=== PATIENT | male | born 1965 | race Caucasian/White ===

== ENCOUNTER 2020-11-12 13:33 | Emergency (ER) | payer OTHER ==
[~2020-11-12] VITALS: Ht 182.9 cm; Wt 83.9 kg
[~2020-11-12 13:33] MED LIST: DIPH50 PO; RANI150 PO
[2020-11-12 14:19] LABS: BASOPHILS ABSOLUTE AUTO 0.04 K/mm3 (0.00-0.23); BASOPHILS PERCENT AUTO 1 % (0-2); EOSINOPHILS ABSOLUTE AUTO 0.13 K/mm3 (0.00-0.68); EOSINOPHILS PERCENT AUTO 2 % (0-6); Hematocrit 43.6 % (37.0-53.0); Hemoglobin 15.1 g/dL (13.5-17.5); IMMATURE GRAN ABSOLUTE AUTO 0.03 K/mm3 (0.00-0.10); IMMATURE GRAN PERCENT AUTO 0 % (0-1); LYMPHOCYTES ABSOLUTE AUTO 1.99 K/mm3 (0.84-5.20); LYMPHOCYTES PERCENT AUTO 27 % (21-46); MONOCYTES ABSOLUTE AUTO 0.73 K/mm3 (0.16-1.47); MONOCYTES PERCENT AUTO 10 % (4-13); Mean Corpuscular HGB 31.3 pg (26.0-34.0); Mean Corpuscular HGB Conc 34.6 g/dL (31.5-36.5); Mean Corpuscular Volume 91 fL (80-100); NEUTROPHILS ABSOLUTE AUTO 4.57 K/mm3 (1.96-9.15); NEUTROPHILS PERCENT AUTO 61 % (41-73); RDW Coefficient Variation 11.9 % (11.7-14.2); RDW Standard Deviation 39.6 fL (35.1-46.3); Red Blood Cell Count 4.82 M/mm3 (4.30-5.90); White Blood Cell Count 7.49 K/mm3 (4.00-11.30)
[2020-11-12 14:24] LABS: Mean Platelet Volume 8.5 fL (9.1-12.4); Platelet Count 264 K/mm3 (150-400)
[2020-11-12 14:31] LABS: Alanine Aminotransfer (ALT/SGP 21 U/L (12-78); Albumin, Blood 3.3 g/dL (3.4-5.0); Albumin/Globulin Ratio 0.8 (0.8-1.8); Alk Phos 89 U/L (50-136); Anion Gap 4 mmol/L (6-16); Aspartate Aminotrans (AST/SGOT 28 U/L (12-37); Bilirubin, Total 0.5 mg/dL (0.1-1.0); Blood Urea Nitrogen 11 mg/dL (8-24); Bun/Creatinine Ratio 11.9 (12.0-20.0); CO2, Blood 24 mmol/L (21-32); Calcium, Blood 8.9 mg/dL (8.5-10.1); Chloride, Blood 107 mmol/L (98-108); Creatinine, Blood 0.93 mg/dL (0.60-1.20); Globulin, Blood 4.2 g/dL (2.2-4.0); Glomerular Filtration Rate >60 (60-); Glucose, Blood 86 mg/dL (70-99); Potassium, Blood 3.9 mmol/L (3.5-5.5); Sodium, Blood 135 mmol/L (136-145); Total Protein, Blood 7.5 g/dL (6.4-8.2); Troponin I <0.015 ng/mL (0.000-0.040)
== END 2020-11-12 15:32 | disposition home or self-care (01) ==
LOC: ER 13:33
PROVIDERS: Emergency Medicine
DX: R07.9 Chest pain, unspecified (principal); R20.0 Anesthesia of skin; Z53.21 Procedure and treatment not carried out due to patient leaving prior to being seen by health care provider
CPT/HCPCS: 36415; 71046; 80053; 84484; 85025; 93005; 93010

== ENCOUNTER 2021-03-23 21:23 | Emergency (ER) | payer SELFPAY ==
[~2021-03-23] VITALS: Ht 185.4 cm; Wt 77.1 kg
== END 2021-03-23 21:50 | disposition left against medical advice (07) ==
LOC: ER 21:23
DX: R10.13 Epigastric pain (principal); Z53.21 Procedure and treatment not carried out due to patient leaving prior to being seen by health care provider
CPT/HCPCS: 93005; 93010; 99281-25

== ENCOUNTER 2022-09-05 05:25 | Inpatient (IN) | payer OTHER ==
[~2022-09-05] VITALS: Ht 177.8 cm; Wt 65.5 kg
[2022-09-05 05:59] LABS: Source, Urine Clean Catch
[2022-09-05 06:19] LABS: Appearance, Urine Clear (Clear); Bilirubin, Urine Neg (Neg); Blood, Urine Neg (Neg); Glucose Qualitative, Urine Neg (Neg); Ketones, Urine Neg (Neg); Leukocyte Esterase, Urine Neg (Neg); Nitrite, Urine Neg (Neg); Protein, Urine 1+ (Neg); Urobilinogen, Urine NORM (Normal)
[2022-09-05 06:20] LABS: BASOPHILS ABSOLUTE AUTO 0.03 K/mm3 (0.00-0.23); BASOPHILS PERCENT AUTO 1 % (0-2); EOSINOPHILS ABSOLUTE AUTO 0.14 K/mm3 (0.00-0.68); EOSINOPHILS PERCENT AUTO 3 % (0-6); Hematocrit 42.7 % (37.0-53.0); Hemoglobin 14.9 g/dL (13.5-17.5); IMMATURE GRAN ABSOLUTE AUTO 0.02 K/mm3 (0.00-0.10); IMMATURE GRAN PERCENT AUTO 0 % (0-1); LYMPHOCYTES ABSOLUTE AUTO 2.49 K/mm3 (0.84-5.20); LYMPHOCYTES PERCENT AUTO 46 % (21-46); MONOCYTES ABSOLUTE AUTO 0.55 K/mm3 (0.16-1.47); MONOCYTES PERCENT AUTO 10 % (4-13); Mean Corpuscular HGB 29.9 pg (26.0-34.0); Mean Corpuscular HGB Conc 34.9 g/dL (31.5-36.5); Mean Corpuscular Volume 86 fL (80-100); Mean Platelet Volume 8.2 fL (9.1-12.4); NEUTROPHILS ABSOLUTE AUTO 2.23 K/mm3 (1.96-9.15); NEUTROPHILS PERCENT AUTO 41 % (41-73); Platelet Count 234 K/mm3 (150-400); RDW Coefficient Variation 12.3 % (11.7-14.2); Red Blood Cell Count 4.99 M/mm3 (4.30-5.90); White Blood Cell Count 5.46 K/mm3 (4.00-11.30)
[2022-09-05 06:24] LABS: Color, Urine Pale Yellow (P-Yellow)
[2022-09-05 06:28] LABS: U Amphetamine Screen DETECTED; U Barbituate Screen Not Detected; U Benzodiazapine Screen DETECTED; U Buprenorphine Screen Not Detected; U Cannabinoids Screen DETECTED; U Cocaine Screen Not Detected; U Methadone Screen Not Detected; U Methamphetamine Screen DETECTED; U Opiates Screen Not Detected; U Oxycodone Screen Not Detected; U Phencyclidine Screen Not Detected; U Propoxyphene Screen Not Detected
[2022-09-05 06:39] LABS: Salicylate <1.7 mg/dL (2.8-20.0)
[2022-09-05 06:52] LABS: Acetaminophen, Random <2.0 ug/mL (10.0-30.0); Alanine Aminotransfer (ALT/SGP 20 U/L (12-78); Albumin, Blood 3.5 g/dL (3.4-5.0); Albumin/Globulin Ratio 0.9 (0.8-1.8); Alk Phos 81 U/L (50-136); Anion Gap 9 mmol/L (6-16); Aspartate Aminotrans (AST/SGOT 32 U/L (12-37); Bilirubin, Total 0.8 mg/dL (0.1-1.0); Blood Urea Nitrogen 15 mg/dL (8-24); Bun/Creatinine Ratio 16.4 (12.0-20.0); CO2, Blood 22 mmol/L (21-32); Calcium, Blood 8.6 mg/dL (8.5-10.1); Chloride, Blood 106 mmol/L (98-108); Creatinine, Blood 0.91 mg/dL (0.60-1.20); Glomerular Filtration Rate 99 (60-); Glucose, Blood 122 mg/dL (70-99); Sodium, Blood 137 mmol/L (136-145); Total Protein, Blood 7.5 g/dL (6.4-8.2)
--- NOTE | 2022-09-05 10:12 | NUR ---
ARRIVAL: Pt arrive to ICU 8 at 0819 with potassium and magnesium running through 20 in left dorsal foot. Pt attempting to sit up on stretcher and purposfully reaching for ETT. Propofol was reinitiated at 10 and restraints replaced. Bilateral 20g 8cm powerglides started. Foot PIV and right tibeal IO discontinued. Pt's SO, Carolina Salazar, now at bedside and has been updated on pt status. She notes that pt has an adult daughter locally whom he is astrainged from. He began taking xanax two days ago after he was triggered from seeing his daughter and grandchildren in town. He has been reporting thoughts of suicidality to the SO. Yesterday, he left the house, "shuffling to get beer" and she had not seen him return. He was found outside the home unresponsive in his vehicle.
--- NOTE | 2022-09-05 10:41 | NUR ---
SUICIDE RISK: Suicide risk to be reassessed once pt extubated. Case discussed with nurse research & analytics manager who agrees pt does not need a 1:1 while intubated and sedated.
[2022-09-05 10:58] LABS: Source, Urine Foley catheter
[2022-09-05 11:05] LABS: Appearance, Urine Clear (Clear); Bilirubin, Urine Neg (Neg); Blood, Urine Neg (Neg); Color, Urine Yellow (P-Yellow); Glucose Qualitative, Urine Neg (Neg); Ketones, Urine Neg (Neg); Leukocyte Esterase, Urine Neg (Neg); Nitrite, Urine Neg (Neg); Protein, Urine 1+ (Neg); Urobilinogen, Urine NORM (Normal)
--- NOTE | 2022-09-05 11:25 | NUR ---
BELONGINGS: Pt belongings sent home with SO.
--- NOTE | 2022-09-05 18:21 | NUR ---
SHIFT SUMMARY: NEURO: pt opens eyes to stimulation. he moves all extremities and attempts to sit up in bed. He appears very confused. When RN calls is name he looks over with eyes closed and mouths "what". He does not follow commands and with only make eye contact with RN for a brief period of time. CARDIAC: NSR on monitor. BPs stable. Faint pedal pulses RESPIRATORY: VC+ 16/450/5/25% GI/: OG in place to LIS. Cardoso in place and draining to gravity SKIN: abrasions to right forhead and left hand. photos in chart PSYCH/SOCIAL: BELLE, Carolina, and sister, Tracee, have been updated on pt case. SO has asked that visitors be limited to those listed on the consent to verbal release of information.
--- NOTE | 2022-09-05 22:23 | NUR ---
ASSUMED CARE AT 1900 PT LAYING IN BED INTUBATED WITH VENT SETTINGS AC/VC+ 16/450/5/25%. PT IS SEDATED WITH PROPOFOL INFUSING [id number]/KG/MIN; WHEN STIMULATED WITH ORAL CARE OR REPOSITIONING IN BED, HE IS PULLING AT RESTRAINTS; GRIMICING, SHAKING HEAD BACK AND FORTH, AND MOVING BLE; NOT FOLLOWING DIRECTIONS DURING THIS TIME OF AGITATION; WHEN NOT STIMULATED, NO SPONTANIOUS MOVEMENT NOTED. HR 70'S. SBP 140'S. OG TO LIS. MAKI IN PLACE AND DRAINING TO GRAVITY. NS INFUSING AT 125ML/HR. BILATERAL POWERGLIDES PATENT AND DRESSING C/D/I. SEE SHIFT ASSESSMENT FOR FULL ASSESSMENT.
[2022-09-06 04:24] LABS: BASOPHILS ABSOLUTE AUTO 0.02 K/mm3 (0.00-0.23); BASOPHILS PERCENT AUTO 0 % (0-2); EOSINOPHILS ABSOLUTE AUTO 0.07 K/mm3 (0.00-0.68); EOSINOPHILS PERCENT AUTO 1 % (0-6); Hematocrit 39.4 % (37.0-53.0); Hemoglobin 13.6 g/dL (13.5-17.5); IMMATURE GRAN ABSOLUTE AUTO 0.02 K/mm3 (0.00-0.10); IMMATURE GRAN PERCENT AUTO 0 % (0-1); LYMPHOCYTES ABSOLUTE AUTO 1.57 K/mm3 (0.84-5.20); LYMPHOCYTES PERCENT AUTO 19 % (21-46); MONOCYTES ABSOLUTE AUTO 0.75 K/mm3 (0.16-1.47); MONOCYTES PERCENT AUTO 9 % (4-13); Mean Corpuscular HGB 30.6 pg (26.0-34.0); Mean Corpuscular HGB Conc 34.5 g/dL (31.5-36.5); Mean Corpuscular Volume 89 fL (80-100); Mean Platelet Volume 8.4 fL (9.1-12.4); NEUTROPHILS ABSOLUTE AUTO 5.99 K/mm3 (1.96-9.15); NEUTROPHILS PERCENT AUTO 71 % (41-73); Platelet Count 214 K/mm3 (150-400); RDW Coefficient Variation 12.6 % (11.7-14.2); RDW Standard Deviation 41.1 fL (35.1-46.3); Red Blood Cell Count 4.45 M/mm3 (4.30-5.90); White Blood Cell Count 8.42 K/mm3 (4.00-11.30)
[2022-09-06 05:00] LABS: Albumin, Blood 3.1 g/dL (3.4-5.0); Albumin/Globulin Ratio 0.9 (0.8-1.8); Bun/Creatinine Ratio 12.6 (12.0-20.0); Calcium, Blood 8.2 mg/dL (8.5-10.1); Creatinine, Blood 1.03 mg/dL (0.60-1.20); Globulin, Blood 3.3 g/dL (2.2-4.0); Magnesium, Blood 2.4 mg/dL (1.6-2.4); Potassium, Blood 3.8 mmol/L (3.5-5.5); Total Protein, Blood 6.4 g/dL (6.4-8.2)
--- NOTE | 2022-09-06 06:30 | NUR ---
END OF SHIFT SUMMARY NO ACUTE EVENTS OVER NIGHT. SEDATION CHALLENGING AT TIMES WITH EITHER RASS -4 TO RASS +2; ATTEMPTED TO TITRATE PROPOFOL ACCORDINGLY; WHEN RASS -4, PROPOFOL TITRATED DOWN TO 25MCG/KG/MIN; WHEN RASS +2, PROPOFOL TITRATED UP TO 50MCG/KG/MIN; ONCE PT OPENED EYES ON COMMAND; NO OTHER DIRECTIONS FOLLOWED. VENT SETTINGS AC/VC+ 16/450/5/25%. HR 70'S. SBP 120-160'S. OG TO LIS. MAKI IN PLACE WITH URINE COLOR PROGRESSIVLY GETTING DARKER. NS INFUSING AT 125ML/HR. WILL REPORT TO AM RN WHEN AVAILABLE.
--- NOTE | 2022-09-06 07:31 | NUR ---
[place] of Care: Care assumed at 0700hr. Patient intubated and sedated with propofol gtt at 30mcg/kg/min. Patient responds to noxious stimuli, withdraws all extremities, but not following any commands. Plan to stop sedation this morning to better assess neuro and evaluate for possible extubation . VSS, tolerating vent without difficulty. Bilateral soft wrist restraints in place to protect lines, tubes, cords. Bilateral powerglides to upper arms, patent and intact. Cardoso cath patent and intact, draining dark yellow urine. Will continue to monitor.
--- NOTE | 2022-09-06 10:29 | NUR ---
Sedation/Precedex: Spoke with Dr. De La Fuente and Dr. Ritter this morning regarding sedation vacation and possible extubation. NOC RN reported patient very restless at times, not following any commands. Therefore, Dr. De La Fuente ordered precedex gtt, instructed to start precedex before decreasing propofol gtt. While preparing precedex gtt, patient was receiving oral care from dental hygienist . Patient then became very restless, thrashing in bed. Attempted to open his eyes spontaneously, but not tracking staff or following any commands. Unable to verbally re-direct patient. Precedex gtt started at 0.2mg/kg/hr then titrated up to 0.4. Plan to slowly decrease propofol gtt. Will continue to monitor.
--- NOTE | 2022-09-06 19:04 | NUR ---
Shift Summary: See previous note r/t sedation and addition of precedex. After starting precedex, propofol gtt decreased to 10mcg/kg/min. Patient then became very agitated, thrashing in bed, kicking the footboard repeatedly. Continuous attempts to verbally re-direct patient were not effective. Dr. De La Fuente called to room, instructed to re-start sedation and maintain sedation for remainder of shift. Also received new orders for PT Ativan and Seroquel. Propofol gtt back to 30mcg/kin/min and Precedex gtt at 0.4 mcg/kg/hr for remainder of shift. VSS remain stable. Continues to tolerate vent without difficulty. Report given to NOC shift RN.
--- NOTE | 2022-09-06 19:32 | NUR ---
ASSUMED CARE PATIENT INTUBATED AND SEDATED, BILAT WRIST RESTRAINTS IN PLACE. NO FAMILY AT BEDSIDE.
[2022-09-07 03:35] LABS: BASOPHILS ABSOLUTE AUTO 0.03 K/mm3 (0.00-0.23); BASOPHILS PERCENT AUTO 0 % (0-2); EOSINOPHILS ABSOLUTE AUTO 0.09 K/mm3 (0.00-0.68); EOSINOPHILS PERCENT AUTO 1 % (0-6); Hematocrit 38.7 % (37.0-53.0); Hemoglobin 13.3 g/dL (13.5-17.5); IMMATURE GRAN ABSOLUTE AUTO 0.03 K/mm3 (0.00-0.10); IMMATURE GRAN PERCENT AUTO 0 % (0-1); LYMPHOCYTES ABSOLUTE AUTO 1.61 K/mm3 (0.84-5.20); LYMPHOCYTES PERCENT AUTO 16 % (21-46); MONOCYTES ABSOLUTE AUTO 0.86 K/mm3 (0.16-1.47); MONOCYTES PERCENT AUTO 9 % (4-13); Mean Corpuscular HGB 30.4 pg (26.0-34.0); Mean Corpuscular HGB Conc 34.4 g/dL (31.5-36.5); Mean Corpuscular Volume 89 fL (80-100); NEUTROPHILS PERCENT AUTO 74 % (41-73); Platelet Count 216 K/mm3 (150-400); RDW Coefficient Variation 12.3 % (11.7-14.2); RDW Standard Deviation 39.9 fL (35.1-46.3); Red Blood Cell Count 4.37 M/mm3 (4.30-5.90); White Blood Cell Count 9.92 K/mm3 (4.00-11.30)
[2022-09-07 03:55] LABS: Albumin, Blood 2.6 g/dL (3.4-5.0); Anion Gap 4 mmol/L (6-16); Blood Urea Nitrogen 14 mg/dL (8-24); Bun/Creatinine Ratio 16.1 (12.0-20.0); CO2, Blood 24 mmol/L (21-32); Chloride, Blood 112 mmol/L (98-108); Creatinine, Blood 0.87 mg/dL (0.60-1.20); Glomerular Filtration Rate 101 (60-); Glucose, Blood 117 mg/dL (70-99); Magnesium, Blood 2.3 mg/dL (1.6-2.4); Potassium, Blood 3.6 mmol/L (3.5-5.5); Sodium, Blood 140 mmol/L (136-145)
--- NOTE | 2022-09-07 06:45 | NUR ---
PATIENT REMAINS INTUBATED AC/VC 16/450/5/25% SEDATED ON PROPOFOL. PRECEDEX OFF D/T BRADYCARDIA. MORNING SEROQUEL HELD D/T SINUS BRADYCARDIA/SINUS ARRYTHMIA/PJC'S. BILAT WRIST RESTAINTS IN PLACE. MAKI CATH IN PLACE. TUBE FEEDS VITAL HP.
--- NOTE | 2022-09-07 12:17 | NUR ---
REASSESSMENT PT REMAINS INTUBATED AND SEDATED AND DR. KING GAVE INSTRUCTIONS TO LEAVE HIM SEDATED TODAY. HE RESPONDS TO PAIN, GETS A LITTLE RESTLESS WITH TURNING AND ORAL CARE, BUT SETTLES BACK DOWN. LUNGS ARE CLEAR. LARGE AMT OF THICK WHITE SECTIONS SUCTIONED FROM ETT. SR, BP STABLE. MAKI WITH ROBERT URINE AND A FEW SMALL BLOOD CLOTS. TUBE FEED RATE INCREASED THIS AM TO 40ML/HR (GOAL 55) AND PT IS TOLERATING. POWERGLIDE IN SAMUEL WASN'T FLUSHING. REDRESSED SITE AND IT APPEARS THE CATHETER WAS KINKING, BUT UNABLE TO SECURE THE CATHETER IN A WAY THAT IT WOULD STAY STRAIGHT SO REMOVED IT AND NAIMA, RN PLACED ANOTHER POWERGLIDE. PT'S SISTER AND SO CALLED AND WERE GIVEN UPDATES.
--- NOTE | 2022-09-07 17:37 | NUR ---
SHIFT SUMMARY PT REMAINS INTUBATED AND SEDATED. HE GETS RESTLESS WHEN HE NEEDS ET SUCTIONED AND WITH TURNS, BUT SETTLES BACK DOWN QUICKLY. PRECEDEX HAS REMAINED OFF. LUNGS ARE CLEAR. LARGE AMTS OF THICK WHITE SPUTUM FROM ETT. SR, BP STABLE. GOOD URINE OUTPUT, STILL ROBERT WITH SOME RED APPARENT IN THE TUBING. TOLERATING TUBE FEEDS. RATE ADVANCED TO 50ML/HR THIS AFTERNOON. SPOKE WITH PT'S SO AGAIN THIS AFTERNOON VIA TC AND PROVIDED UPDATED.
--- NOTE | 2022-09-07 19:11 | NUR ---
ASSUMED CARE. PATIENT INTUBATED/SEDATED. NO FAMILY AT BEDSIDE. BILATERAL WRIST RESTRAINTS IN PLACE. MAKI IN PLACE
[2022-09-08 03:31] LABS: BASOPHILS ABSOLUTE AUTO 0.02 K/mm3 (0.00-0.23); BASOPHILS PERCENT AUTO 0 % (0-2); EOSINOPHILS ABSOLUTE AUTO 0.22 K/mm3 (0.00-0.68); EOSINOPHILS PERCENT AUTO 3 % (0-6); Hematocrit 36.1 % (37.0-53.0); Hemoglobin 12.5 g/dL (13.5-17.5); IMMATURE GRAN ABSOLUTE AUTO 0.02 K/mm3 (0.00-0.10); IMMATURE GRAN PERCENT AUTO 0 % (0-1); LYMPHOCYTES ABSOLUTE AUTO 1.66 K/mm3 (0.84-5.20); LYMPHOCYTES PERCENT AUTO 23 % (21-46); MONOCYTES PERCENT AUTO 11 % (4-13); Mean Corpuscular HGB 30.6 pg (26.0-34.0); Mean Corpuscular HGB Conc 34.6 g/dL (31.5-36.5); Mean Corpuscular Volume 88 fL (80-100); NEUTROPHILS ABSOLUTE AUTO 4.56 K/mm3 (1.96-9.15); NEUTROPHILS PERCENT AUTO 63 % (41-73); Platelet Count 198 K/mm3 (150-400); RDW Coefficient Variation 12.5 % (11.7-14.2); RDW Standard Deviation 40.7 fL (35.1-46.3); Red Blood Cell Count 4.09 M/mm3 (4.30-5.90); White Blood Cell Count 7.28 K/mm3 (4.00-11.30)
[2022-09-08 03:48] LABS: Albumin, Blood 2.2 g/dL (3.4-5.0); Anion Gap 1 mmol/L (6-16); Blood Urea Nitrogen 10 mg/dL (8-24); Bun/Creatinine Ratio 12.8 (12.0-20.0); CO2, Blood 29 mmol/L (21-32); Calcium, Blood 7.8 mg/dL (8.5-10.1); Chloride, Blood 114 mmol/L (98-108); Creatinine, Blood 0.78 mg/dL (0.60-1.20); Glomerular Filtration Rate 105 (60-); Glucose, Blood 118 mg/dL (70-99); Phosphorus, Blood 3.2 mg/dL (2.5-4.9); Potassium, Blood 3.6 mmol/L (3.5-5.5); Sodium, Blood 144 mmol/L (136-145)
--- NOTE | 2022-09-08 05:47 | NUR ---
SHIFT SUMMARY PATIENT REMAINS INTUBATED/SEDATED. PERIODS OF RESTLESSNESS. TUBE FEEDS ADVANCED TO GOAL TOLERATING FEEDS WELL. NO BM. MAKI IN PLACE, GOOD URINE OUTPUT.
--- NOTE | 2022-09-08 17:20 | NUR ---
SHIFT SUMMARY PT REMAINS INTUBATED AND SEDATED. MEDICATED WITH PRN DILAUDID OCNE THIS AFTERNOON WHEN PT GOT RESTLESS AND WAS THROWING HIS HEAD FROM SIDE TO SIDE. LUNGS ARE CLEAR. LARGE AMTS OF THICK YELLOW SPUTUM SUCTIONED FROM ETT. SR WITH PAC, BP STABLE. TOLERATING TUBE FEED WHICH IS AT GOAL. MAKI WITH GOOD OUTPUT, GREEN COLOR. PT'S SO CAME IN TODAY AND WAS UPDATED.
--- NOTE | 2022-09-08 19:20 | NUR ---
ASSUMED CARE PATIENT CONTINUES TO BE INTUBATED/SEDATED. NO FAMILY AT BEDSIDE. APPEARS CALM/COMFORTABLE. PROPOFOL/NS INFUSING. MAKI IN PLACE TO GRAVITY. TUBE FEEDS ARE AT GOAL. VSS STABLE.
[2022-09-09 04:37] LABS: Anion Gap 1 mmol/L (6-16); Blood Urea Nitrogen 11 mg/dL (8-24); Bun/Creatinine Ratio 14.6 (12.0-20.0); CO2, Blood 29 mmol/L (21-32); Calcium, Blood 8.1 mg/dL (8.5-10.1); Chloride, Blood 113 mmol/L (98-108); Creatinine, Blood 0.75 mg/dL (0.60-1.20); Glomerular Filtration Rate 106 (60-); Glucose, Blood 106 mg/dL (70-99); Phosphorus, Blood 3.5 mg/dL (2.5-4.9); Potassium, Blood 3.7 mmol/L (3.5-5.5); Sodium, Blood 143 mmol/L (136-145)
--- NOTE | 2022-09-09 06:31 | NUR ---
SHIFT SUMMARY PATIENT REMAINS INTUBATED/SEDATED. DOES BECOME RESTLESS, SHAKING HEAD BACK/FORTH. VS REMAIN STABLE. OCCASIONALY GOES INTO SINUS ARRYTHMIA BUT CONVERTS BACK TO SINUS RYTHYM. ADEQUATE URINE OUTPUT. TUBE FEEDS AT GOAL.
--- NOTE | 2022-09-09 09:05 | NUR ---
AM NOTE... ASSUMED CARE OF PT AT 0700, PT IS INTUBTED AND SEDATED ON PROPOFOL RUNNING AT 45MCG/KG. PT BECOMES VERY AGITATED WITH ANY TYPE OF STIMULI BUT DOES NOT FOLLOW COMMANDS. HE IS ON PS: 10/5 AND 30% WITH O2 SATS >90% L/S SCATTERED WHEEZES T/O DIM IN THE BASES. ET TUBE IS 25 AT THE GUMS. HE IS IN SR IN THE 70'S-80'S AND HYPERTENSIVE, PT WAS MEDICATED PER [facility] WITH GOOD RESULTS. DEPENDENT EDEMA IS NOTED TO HIS BILATERAL HANDS. BT PRESENT AND HYPOACTIVE, OG TUBE IS RUNNING TUBE FEEDS PER ORDER AT A GOAL RATE OF 55MLS/HR. PT'S TEMP MAKI IS PATENT AND DRAINING ROBERT URINE WITH SEDIMENT TO GRAVITY. PT WILL KICK HIS LEGS OUT AT STAFF IF STAFF ARE AROUND HIS LEGS DURING CARE. WILL CONTINUE TO MONITOR.
--- NOTE | 2022-09-09 18:12 | NUR ---
SHIFT SUMMARY... NO ACUTE NEGATIVE CHANGES NOTED THIS SHIFT. PT CONTINUED TO BE ON PROPOFOL AT 55MCG/KG, HE WAKES EASILY WITH ANY MINOR STIMULI PT STILL DOES NOT FOLLOW COMMANDS. PT'S VS STABLE. PT WAS GIVEN A BEDBATH AND LINEN CHANGE THIS SHIFT. THE PT'S URINE IS TURNING "PROPOFOL GREEN" IN COLOR. NO CHANGES TO THE PT'S TUBE FEEDS. PT WAS STARTED ON BOWEL CARE, PT HAS NOT HAD A BM IN 4+ DAYS LAST BM WAS UNKNOWN. THE PT'S WAS UPDATED BY THIS RN. CALL LIGHT IN REACH WILL CONTINUE TO MONITOR UNTIL REPORT IS GIVEN TO ONCOMING RN.
--- NOTE | 2022-09-09 19:47 | NUR ---
SHIFT SUMMARY PATIENT IS INTUBATED AND SEDATED ON PROPOFOL. MOVES HEAD BACK AND FORTH AND LOCALIZES TO PAIN. DOES NOT OPEN EYES OR FOLLOW COMMANDS. 02 SATS 98% ON VENT, SPONT 10/5 FI02 30%, RR 18. MODERATE AMOUNT OF THICK BROWN/CLEAR SECRETIONS. HR SR 70s, BP STABLE. OG WITH VITAL HP AT GOAL RATE OF 55 MLS/HR WITH 30 MLS FLUSHES H20 Q4 HOURS. BOWEL TONES HYPOACTIVE. TEMP MAKI PATENT AND DRAINING YELLOW/GREEN URINE. PATIENT REPOSITIONED AND ORAL CARE DONE. SEE SHIFT ASSESSMENT FOR MORE INFORMATION
[2022-09-10 04:02] LABS: BASOPHILS ABSOLUTE AUTO 0.03 K/mm3 (0.00-0.23); BASOPHILS PERCENT AUTO 1 % (0-2); EOSINOPHILS ABSOLUTE AUTO 0.26 K/mm3 (0.00-0.68); EOSINOPHILS PERCENT AUTO 5 % (0-6); Hematocrit 33.2 % (37.0-53.0); Hemoglobin 11.2 g/dL (13.5-17.5); IMMATURE GRAN ABSOLUTE AUTO 0.03 K/mm3 (0.00-0.10); IMMATURE GRAN PERCENT AUTO 1 % (0-1); LYMPHOCYTES ABSOLUTE AUTO 1.42 K/mm3 (0.84-5.20); LYMPHOCYTES PERCENT AUTO 25 % (21-46); MONOCYTES ABSOLUTE AUTO 0.66 K/mm3 (0.16-1.47); MONOCYTES PERCENT AUTO 12 % (4-13); Mean Corpuscular HGB 30.3 pg (26.0-34.0); Mean Corpuscular HGB Conc 33.7 g/dL (31.5-36.5); Mean Corpuscular Volume 90 fL (80-100); Mean Platelet Volume 8.8 fL (9.1-12.4); NEUTROPHILS ABSOLUTE AUTO 3.29 K/mm3 (1.96-9.15); NEUTROPHILS PERCENT AUTO 58 % (41-73); Platelet Count 253 K/mm3 (150-400); RDW Coefficient Variation 12.5 % (11.7-14.2); RDW Standard Deviation 41.1 fL (35.1-46.3); White Blood Cell Count 5.69 K/mm3 (4.00-11.30)
[2022-09-10 04:26] LABS: Albumin, Blood 2.1 g/dL (3.4-5.0); Anion Gap 2 mmol/L (6-16); Blood Urea Nitrogen 13 mg/dL (8-24); Bun/Creatinine Ratio 17.1 (12.0-20.0); CO2, Blood 28 mmol/L (21-32); Calcium, Blood 8.4 mg/dL (8.5-10.1); Chloride, Blood 112 mmol/L (98-108); Creatinine, Blood 0.76 mg/dL (0.60-1.20); Glomerular Filtration Rate 105 (60-); Glucose, Blood 116 mg/dL (70-99); Phosphorus, Blood 3.7 mg/dL (2.5-4.9); Potassium, Blood 3.9 mmol/L (3.5-5.5); Sodium, Blood 142 mmol/L (136-145)
--- NOTE | 2022-09-10 06:03 | NUR ---
SHIFT SUMMARY PATIENT REMIANS INTUBATED AND SEDATED ON PROPOFOL. REPSONDS TO TOUCH BUT STILL UNABLE TO FOLLOW COMMANDS, JUST SHAKES HEAD AND MOVES ALL EXTREMITIES. 02 SATS 99% ON SPONT 10/5 30%, RR 20s. HR SR 70s, BP STABLE. TEMP MAKI PATENT AND DRAINING GREEN/YELLOW URINE, 1100 MLS OUT THIS SHIFT. TUBE FEED REMIANS INFUSING AT GOAL RATE. BED BATH DONE AND PATIENT REPOSITIONED Q2 HOURS.
--- NOTE | 2022-09-10 11:47 | NUR ---
SEDATION VACATION/UPDATE WITH PROPOFOL TITRATED TO 30MCG/KG/MIN PT IS RESTLESS. HE OPENS EYES TO VERBAL STIMULI BUT IS UNABLE TO FOLLOW VERBAL COMMANDS. HE TURNS HEAD SIDE TO SIDE, PULLS AGAINST WRIST RESTRAINTS AND MOVES LOWER EXTREMITIES. STEEL PAN FORM PLACING SUPERVISOR AT BEDSIDE FOR EVAL. PLAN TO RESTART PRECEDEX AND ATTEMPT TO DISCONTINUE PROPOFOL. SIGNIFICANT OTHER ROE AT BEDSIDE AND UPDATED ON PT CONDITION. PT EXPRESSES CONCERN ABOUT PT'S BEHAVIOR AFTER EXTUBATION. SHE REPORTS PT STS SI APPROX EVERY 4-6 WEEKS WHEN "HIS LIFE GETS OUT OF CONTROL AND HE CAN'T FIX IT". SHE ALSO WOULD LIKE TO SPEAK TO PSYCHIATRIST AFTER EXTUBATION IF POSSIBLE TO PROVIDE HISTORY. SPOUSE PROVIDED EDUCATION REGARDING 1:1 SITTER AFTER EXTUBATION.
--- NOTE | 2022-09-10 18:31 | NUR ---
SHIFT SUMMARY PT RECEIVING PROPOFOL 30MCG/KG/MIN AND PRECEDEX 1.4MCG/KG/HR. HE REMAINS INTUBATED WITH VENT SETTINGS SPONT 10/5/30%. PT BECOMES AGITATED AT TIMES, MEDICATED PER EMAR. HR 50S-70S. BP STABLE WITH MAP >65. TUBE FEEDING INFUSING AT GOAL RATE. BOWEL TONES ACTIVE. BOWEL REGIMEN GIVEN, NO BM AT THIS TIME. TEMP MAKI PATENT AND DRAINING GREEN/YELLOW TO GRAVITY. 1100ML URINE OUTPUT.
--- NOTE | 2022-09-10 19:57 | NUR ---
ASSUMED CARE AT 1900 PATIENT IS INTUBATED AND SEDATED ON PROPOFOL AND PRECEDEX, WILL ATTEMPT TO TITRATE PROPOFOL DOWN THROUGH THE NIGHT. PATIENT LOCALIZES TO PAIN, UNABLE TO FOLLOW COMMANDS. 02 SATS 99% ON VENT SPONT 10/ FI02 30%, RR 18-24. HR SB 50s WITH PACs. BP STABLE. OG WITH VHP AT GOAL RATE, 30 MLS FLUSHES H20 Q4 HOURS. TEMP MAKI PATENT AND DRAINING TO GRAVITY. ORAL CARE DONE AND PATIENT REPOSITIONED.
--- NOTE | 2022-09-10 23:53 | NUR ---
PATIENT CONTINUES TO WAKE UP AND SWING HIS HEAD BACK AND FORTH KICKING AND PULLING AT RESTRAINTS. UNABLE TO REDIRECT, PATIENT MAKES EYE CONTACT BUT WILL NOT FOLLOW COMMANDS. PRN MEDICATIONS GIVEN AND PROPOFOL TITRATED UP. RT TO ROOM TO SWITCH PATIENT FROM SPONTANEOUS DUE TO SEDATION AND ADJUST TUBE DUE TO PATIENT MOVING ETT WHILE MOVING HIS HEAD.
[2022-09-11 04:18] LABS: Hematocrit 34.5 % (37.0-53.0); Hemoglobin 11.7 g/dL (13.5-17.5); Mean Corpuscular HGB 30.1 pg (26.0-34.0); Mean Corpuscular HGB Conc 33.9 g/dL (31.5-36.5); Mean Corpuscular Volume 89 fL (80-100); Mean Platelet Volume 9.4 fL (9.1-12.4); Platelet Count 290 K/mm3 (150-400); RDW Coefficient Variation 11.9 % (11.7-14.2); RDW Standard Deviation 38.5 fL (35.1-46.3); Red Blood Cell Count 3.89 M/mm3 (4.30-5.90); White Blood Cell Count 6.61 K/mm3 (4.00-11.30)
[2022-09-11 04:25] LABS: Bun/Creatinine Ratio 25.3 (12.0-20.0); Calcium, Blood 8.9 mg/dL (8.5-10.1); Creatinine, Blood 0.71 mg/dL (0.60-1.20); Magnesium, Blood 2.2 mg/dL (1.6-2.4); Phosphorus, Blood 3.3 mg/dL (2.5-4.9); Potassium, Blood 3.9 mmol/L (3.5-5.5)
--- NOTE | 2022-09-11 04:43 | NUR ---
SHIFT SUMMARY PATIENT REMAINS INTUBATED AND SEDATED ON PROPOFOL AND PRECEDEX. ATTEMPTED TO TITRATE PROPOFOL DOWN, PATIENT UNABLE TO FOLLOW COMMANDS AND STARTS KICKING AND THRASHING HEAD BACK AND FORTH. PRN MEDICATIONS GIVEN FOR AGITATION. PATIENT ATTEMPTED TO SWITCH PATIENT BACK TO SPONT ON VENT BUT UNABLE. 02 SATS 95% ON AC VC+ 16/500/5/30%. HR SB 50s. BP STABLE. OG WITH TF AT GOAL RATE. TEMP MAKI PATENT AND DRAINING TO GRAVITY. BED BATH DONE AND PATIENT REPOSITIONED Q2 HOURS.
--- NOTE | 2022-09-11 11:16 | NUR ---
0800 ASSUMED CARE OF PATIENT AT 0700. PT IS SEDATED ON PROPOFOL AT 40MCG/HR AND PRECEDEX AT 1.4. HE IS ON THE VENTILATOR AC16/500/5/35%. pATIENT VS STABLE HOWEVER PULSE IS SINUS LEONARD WITH PAC'S. HE HAS A MAKI WITH GREEN URINE OUT OF IT. HE HAS 2 POWER GLIDES BILAT UPPER EXTREM. BOTH FLUSH EASILY AND GIVES BLOOD BACK FROM THEM. HE HAS HYPO BT AND BOWEL MEDICATION GIVEN TO HIM THIS AM. HE HAS TUBE FEEDING GOING AT GOAL. MAKI CARE WAS DONE THIS AM AND HE WAS REPOSTIONED. DECREASED PROPOFOL TO 35. HE DOES FOLLOW SIMPLE COMMANDS THEN BECOME RESTLESS KICKING THE END OF THE BED AND THRASHING HIS HEAD AROUND. DR TAM AWARE. 1100 SPOUSE AT BEDSIDE.
--- NOTE | 2022-09-11 17:11 | NUR ---
End of shift summary thus far Patient has been sedated on propofol today 40-50mcg to keep him from thrashing in bed with the ventilator in place. He was still trying to lift himself off the bed and twist his wrist and shoulders to try and be free of restraints and pull at ETT. He also still has the precedex going at 1.4mcg/kg/hr. Patient did has a smeary stool this afternoon but no more bowel movements has transpired since then. Patient has had great urine output from nash catheter however it is still green in color. His tubefeeding was changed today to pivot 1.5 at 40ml hr and free water 100ml / 2 hr, all going down his OG. His skin otherwise looks good and he has been repositioned every 2 hrs. was in twice today and spoke with Breezy while here but it only seemed to encourage his agitation today. When there is less stimuli in the room pt is calmer. Will continue care till next shift arrives to resume care.
--- NOTE | 2022-09-11 19:26 | NUR ---
ASSUMED CARE AT 1900 PATIENT IS INTUBATED AND SEDATED ON PROPOFOL AND PRECEDEX. PRN MEDICATION NEEDED FOR AGITATION, SEE EMAR. 02 SATS 97% ON VENT AC VC+ 16/500/5/30%. LS CLEAR WITH MODERATE AMOUNT OF THICK WHITE SPUTUM. HR SB 50s WITH PACs. BP STABLE. OG WITH TF AT GOAL RATE PIVOT 40 MLS/HR WITH 100 MLS FLUSHES Q2 HOURS. TEMP MAKI PATENT AND DRAINING TO GRAVITY.
[2022-09-12 04:10] LABS: BASOPHILS ABSOLUTE AUTO 0.04 K/mm3 (0.00-0.23); BASOPHILS PERCENT AUTO 0 % (0-2); EOSINOPHILS PERCENT AUTO 3 % (0-6); Hematocrit 33.6 % (37.0-53.0); Hemoglobin 11.5 g/dL (13.5-17.5); IMMATURE GRAN ABSOLUTE AUTO 0.07 K/mm3 (0.00-0.10); IMMATURE GRAN PERCENT AUTO 1 % (0-1); LYMPHOCYTES ABSOLUTE AUTO 1.75 K/mm3 (0.84-5.20); LYMPHOCYTES PERCENT AUTO 18 % (21-46); MONOCYTES ABSOLUTE AUTO 1.07 K/mm3 (0.16-1.47); MONOCYTES PERCENT AUTO 11 % (4-13); Mean Corpuscular HGB 30.3 pg (26.0-34.0); Mean Corpuscular HGB Conc 34.2 g/dL (31.5-36.5); Mean Corpuscular Volume 88 fL (80-100); Mean Platelet Volume 9.3 fL (9.1-12.4); NEUTROPHILS ABSOLUTE AUTO 6.77 K/mm3 (1.96-9.15); NEUTROPHILS PERCENT AUTO 68 % (41-73); Platelet Count 293 K/mm3 (150-400); RDW Coefficient Variation 11.8 % (11.7-14.2)
[2022-09-12 04:46] LABS: Albumin, Blood 2.4 g/dL (3.4-5.0); Anion Gap 2 mmol/L (6-16); Blood Urea Nitrogen 20 mg/dL (8-24); Bun/Creatinine Ratio 27.4 (12.0-20.0); CO2, Blood 30 mmol/L (21-32); Calcium, Blood 8.7 mg/dL (8.5-10.1); Chloride, Blood 106 mmol/L (98-108); Creatinine, Blood 0.73 mg/dL (0.60-1.20); Glomerular Filtration Rate 107 (60-); Glucose, Blood 121 mg/dL (70-99); Phosphorus, Blood 3.3 mg/dL (2.5-4.9); Potassium, Blood 3.7 mmol/L (3.5-5.5); Sodium, Blood 138 mmol/L (136-145)
--- NOTE | 2022-09-12 05:46 | NUR ---
SHIFT SUMMARY PATIENT REMIANS INTUBATED AND SEDATED ON PROPOFOL AND PRECEDEX. PRN MEDICATIONS FOR AGITATION. VENT SETTINGS MOST THE NIGHT AC VC+ 16/500/5/30%, THICK WHITE SUCTIONED FROM ETT. THIS AM TITRATED PROPOFOL DOWN AND SPONT BREATHING TRIAL DONE, PATIENT BECAME VERY AGITATED, PRN MEDICATIONS GIVEN SEE EMAR. PATIENT ABLE TO TOLERATE SPONT STILL VENT SETTINGS NOW 10/5 FI02 35%, RR 20s. HR SB 50s. BP STABLE. TMAX 101.2, TYLENOL GIVEN. TEMP MAKI PATENT AND DRAINING TO GRAVITY. TUBE FEED INF AT GOAL RATE THROUGH OG. MILK OF MAG GIVEN. NO BM THIS SHIFT. PATIENT REPOSITIONED Q2 HOURS.
--- NOTE | 2022-09-12 08:51 | NUR ---
CARE OF PT ASSUMED AT 0700. DURING ASSESSMENT OGT FOUND TO BE OUT AT LEAST 10INCHES. TUBE FEEDS SUCTIONED FROM MOUTH AND ETT. TUBE FEED ALSO ON GREEN SHEET UNDER PT'S HEAD. OGT REPLACED AND STAT CHEST XRAY ORDERED. DR MEAZ NOTIFIED. PROPOFOL AT 50MCG. PRECEDEX INITIALLY AT 1.4 AND DECREASED TO 1.2 FOR BRADYCARDIA.
--- NOTE | 2022-09-12 10:39 | NUR ---
DR MEZA IN TO SEE PT THIS AM, REPORT GIVEN. PRECEDEX TURNED OFF FOR BRADYCARDIA. PT AWAKE, THRASHING IN BED NOW, UNABLE TO FOLLOW COMMANDS. EYE OPEN. VALIUM IV GIVEN. ORAL HYGIENTIST PROVIDING CARE NOW
--- NOTE | 2022-09-12 18:50 | NUR ---
PRECEDEX STOPPED AND DC'D THIS AM. PROPOFOL INCREASED TO 70MCG FOR VENT JOSE/SEVERE AGITATION. PT WOULD OCC OPEN EYES BUT DID NOT TRACK OR FOLLOW COMMANDS. WHEN AWAKE PT WOULD TRASH IN BED. PT REQUIRED SEVERAL DOSES OF DILAUDID AND SEVERAL DOSES OF VALIUM T/O SHIFT. TUBE FEEDS LOWERED TO 35CC PER ORDERS; TUBING CHANGED. PT'S S/O AT BEDSIDE FOR SEVERAL HOURS TODAY AND UPDATED BY DR MEZA. PT ON SPONT T/O SHIFT; JOSE WELL.
[2022-09-13 04:16] LABS: BASOPHILS ABSOLUTE AUTO 0.04 K/mm3 (0.00-0.23); BASOPHILS PERCENT AUTO 1 % (0-2); EOSINOPHILS ABSOLUTE AUTO 0.31 K/mm3 (0.00-0.68); EOSINOPHILS PERCENT AUTO 4 % (0-6); Hematocrit 33.5 % (37.0-53.0); Hemoglobin 11.4 g/dL (13.5-17.5); IMMATURE GRAN ABSOLUTE AUTO 0.11 K/mm3 (0.00-0.10); IMMATURE GRAN PERCENT AUTO 1 % (0-1); LYMPHOCYTES ABSOLUTE AUTO 1.68 K/mm3 (0.84-5.20); LYMPHOCYTES PERCENT AUTO 20 % (21-46); MONOCYTES ABSOLUTE AUTO 1.08 K/mm3 (0.16-1.47); MONOCYTES PERCENT AUTO 13 % (4-13); Mean Corpuscular HGB 30.3 pg (26.0-34.0); Mean Corpuscular Volume 89 fL (80-100); Mean Platelet Volume 8.9 fL (9.1-12.4); NEUTROPHILS ABSOLUTE AUTO 5.18 K/mm3 (1.96-9.15); NEUTROPHILS PERCENT AUTO 62 % (41-73); Platelet Count 321 K/mm3 (150-400); RDW Coefficient Variation 12.1 % (11.7-14.2); RDW Standard Deviation 39.7 fL (35.1-46.3); Red Blood Cell Count 3.76 M/mm3 (4.30-5.90)
[2022-09-13 04:31] LABS: Bun/Creatinine Ratio 29.5 (12.0-20.0); Calcium, Blood 8.3 mg/dL (8.5-10.1); Creatinine, Blood 0.75 mg/dL (0.60-1.20); Magnesium, Blood 2.4 mg/dL (1.6-2.4); Phosphorus, Blood 4.2 mg/dL (2.5-4.9); Potassium, Blood 4.1 mmol/L (3.5-5.5)
--- NOTE | 2022-09-13 05:27 | NUR ---
SHIFT SUMMERY PT IS INTUBATED VIA ETT AND HAS BEEN ON SPONTANEOUS MODE SINCE YESTERDAY, OXYGEN SAT >90%. HR IS SR IN THE 60S,BP WNL. PROPOFOL HAS BEEN AT 70MCGS SINCE PRIOR SHIFT. PRN DILAUDID AND VALIUM GIVEN PER EMAR. PT HAS BEEN FEBRILE AND WAS GIVEN TYLENOL WHICH LOWERED TEMP. TF INFUSING AT GOAL. THERE HAS BEEN NO ACUTE CHANGES IN PT STATUS OVERNIGHT.
--- NOTE | 2022-09-13 05:58 | NUR ---
PT BEGAN TO DESATURATE AND PULL SOME LOW TIDAL VOLUMES. RT WAS NOTIFIED AND HE WAS CHANGED TO PRESSURE CONTROL 14/8 45%. OXYGEN SAT 95% AT THIS TIME.
--- NOTE | 2022-09-13 07:00 | NUR ---
ASSUMPTION OF CARE PT REMAINS INTUBATED WITH VENT SETTINGS PC 14/8/45%. HE IS RECEIVING PROPOFOL 60MCG/KG/MIN, TITRATEDTO 50MCG/KG/MIN. COUGH/GAG INTACT. PT WITHDRAWS FROM PAINFUL STIMULI. NSR ON MONITOR WITH RATE 60S-70S. BP STABLE. PIVOT 1.5 INFUSING AT GOAL RATE WITH 200ML WATER FLUSHES Q2. BOWEL TONES HYPERACTIVE, ADBOMEN SOFT. 1 SMALL LOOSE BM. TEMP MAKI PATENT AND DRAINING YELLOW/GREEN URINE TO GRAVITY. SEE SHIFT ASSESSMENT.
--- NOTE | 2022-09-13 17:12 | NUR ---
SHIFT SUMMARY NO ACUTE CHANGES THIS SHIFT. REMAINS INTUBATED AND SEDATED. VENT SETTINGS AC/PC 14/15/10/35%. LUNGS CLEAR. MODERATE THIN SECRETIONS FROM ETT. MODERATE ORAL SECRETIONS. COUGH/GAG REFLEX. PROPOFOL GTT FOR SEDATION. DOES NOT FOLLOW COMMANDS. ABD ROUND, SOFT, NON TENDER. BT X 4. TUBE FEEDS AT GOAL. MAKI PATENT, DRAINING GREEN URINE TO GRAVITY. WILL CONTINUE TO MONITOR UNTIL REPORT TO ONCOMING NURSE.
--- NOTE | 2022-09-13 19:30 | NUR ---
ASSUMED CARE. PATIENT INTUBATED AND SEDATED ON PROPOFOL 50MCQ/HR. VALUIM AND DILAUDDI PRN FOR AGITATION. PC VENT SETTINGS 14/10/35%. LUNGS CLEAR WITH MODERATE AMOUNT OF THICK WHITE SECREATIONS VIA ETT TUBE, MODERATE AMOUNT OF CLEAR ORAL SECREATIONS. HR SB IN THE 50'S WITH PACS. BP STABLE. TUBE FEED AT GOAL OF 35ML/HR. MAKI PATENT AND DRAINING CLEAR YELLOW. RT IN ROOM
--- NOTE | 2022-09-13 23:40 | NUR ---
SHOWED RT VENT TUBING THAT HAD BROWN CORROTION ON THE INSIDE OF THE BOTH TUBINGS. ASSISTED AIMEE RT WITH A CIRCUIT CHANGE.
[2022-09-14 03:52] LABS: BASOPHILS ABSOLUTE AUTO 0.03 K/mm3 (0.00-0.23); BASOPHILS PERCENT AUTO 0 % (0-2); EOSINOPHILS ABSOLUTE AUTO 0.31 K/mm3 (0.00-0.68); EOSINOPHILS PERCENT AUTO 4 % (0-6); Hemoglobin 12.1 g/dL (13.5-17.5); IMMATURE GRAN ABSOLUTE AUTO 0.16 K/mm3 (0.00-0.10); IMMATURE GRAN PERCENT AUTO 2 % (0-1); LYMPHOCYTES ABSOLUTE AUTO 1.73 K/mm3 (0.84-5.20); LYMPHOCYTES PERCENT AUTO 24 % (21-46); MONOCYTES ABSOLUTE AUTO 0.74 K/mm3 (0.16-1.47); MONOCYTES PERCENT AUTO 10 % (4-13); Mean Corpuscular HGB Conc 34.6 g/dL (31.5-36.5); Mean Corpuscular Volume 90 fL (80-100); Mean Platelet Volume 9.1 fL (9.1-12.4); NEUTROPHILS PERCENT AUTO 59 % (41-73); Platelet Count 346 K/mm3 (150-400); RDW Coefficient Variation 11.9 % (11.7-14.2); RDW Standard Deviation 39.3 fL (35.1-46.3); White Blood Cell Count 7.27 K/mm3 (4.00-11.30)
[2022-09-14 04:08] LABS: Albumin, Blood 2.3 g/dL (3.4-5.0); Anion Gap 2 mmol/L (6-16); Blood Urea Nitrogen 26 mg/dL (8-24); CO2, Blood 31 mmol/L (21-32); Calcium, Blood 8.8 mg/dL (8.5-10.1); Chloride, Blood 105 mmol/L (98-108); Creatinine, Blood 0.81 mg/dL (0.60-1.20); Glomerular Filtration Rate 103 (60-); Glucose, Blood 134 mg/dL (70-99); Potassium, Blood 3.9 mmol/L (3.5-5.5); Sodium, Blood 138 mmol/L (136-145)
--- NOTE | 2022-09-14 06:18 | NUR ---
SHIFT SUMMARY: NO ACUTE CHANGES THIS SHIFT. REMAINS INTUBATED WITH VENT SETTINGS AC/PC 14/15/10/45%. LUNGS CLEAR. MODERATE SECRETIONS YELLOW VIA ET TUBE, MODERATE CLEAR ORAL SECRETIONS. PROPOFOL 50MCQ/HR FOR SEDATION. FENT AND VALIUM PRN FOR AGGITATION. ONLY OPENS EYES TO NAME BEING CALLED, DOES NOT FOLLOW ANY OTHER DIRECTIONS. SINUS LEONARD IN THE 50'S. TUBE FEEDS REMAIN AT GOAL OF 35ML/HR, MILD ABD DISTENTION, BT HYPOACTIVE. MAKI PATENT WITH GREENISH YELLOW URINE. WILL REPORT TO DAYSAZFT.
--- NOTE | 2022-09-14 10:44 | NUR ---
SEDATION VACATION PROPOFOL TITRATED DOWN AND THEN PLACED ON STANDBY. PT AGITATED, RESTLESS AND NOT REDIRECTABLE. HE MOVES UPPER EXTREMITIES AGAINST RESTRAINTS, CONTINUOUSLY MOVING LOWER EXTREMITIES. PT OPENS EYES SPONTANEOUSLY BUT DOES NOT FOLLOW ANY COMMANDS. ATTEMPTED PRN MEDS PER EMAR, PT STILL RESTLESS AND SHAKING HEAD SIDE TO SIDE. PROPOFOL RESTARTED AT LOW DOSE.
--- NOTE | 2022-09-14 13:32 | NUR ---
UPDATE PT REMAINS ON AC/VC+ 16/500/10/40%. PROPOFOL INFUSING AT 35MCG/KG/MIN. PT OCCASIONALLY RESTLESS AND MEDICATED PER EMAR. TUBE FEEDING INFUSING AT GOAL RATE. HR 50S-60S, BP STABLE WITH SBP 120S-130S. SPOUSE UPDATED.
--- NOTE | 2022-09-14 17:46 | NUR ---
SHIFT SUMMARY PT REMAINS INTUBATED WITH VENT SETTINGS AC/VC+ 15/500/10/35%. HE IS RECEIVING PROPOFOL 35MCG/KG/MIN AND MEDICATED PRN PER EMAR. SEDATION VACATION ATTEMPTED THIS SHIFT, PT BECAME RESTLESS/AGITATED AND WAS UNABLE TO FOLLOW COMMANDS OR BE REDIRECTED SO SEDATION WAS RESUMED. LUNGS ARE CLEAR, DIMINISHED IN BASES. SMALL AMOUNT OF ORAL AND ETT SECRETIONS TODAY. ETT WAS ADVANCED TO 27CM AT GUMS BY RT. SINUS RHYTHM ON MONITOR WITH OCCASIONAL PACS, RATE 50S-60S. BP STABLE WITH SBP 110S-140S. PIVOT 1.5 INFUSING AT GOAL RATE. BOWEL TONES ACTIVE/HYPERACTIVE. TEMP MAKI PATENT AND DRAINING TO GRAVITY WITH 1350ML OUTPUT THAT IS GREEN/YELLOW. TMAX 99.9.
--- NOTE | 2022-09-14 19:04 | NUR ---
ASSUMED CARE OF PT AT 1900 PT IS SEDATED AND VENTILATED. PROP AT 45 MCG. PT IS STILL MOVING LEGS AROUND IN BED. SOFT BILATERAL WRIST RESTRAINTS ON. ALL PULSES STRONG. MAKI CATH DRAINGING TO GRAVITY. NO APPARENT ISSUES AT THIS TIME. VITALS WNL. SEE FULL ASSSESSMENT FOR FURHTER INFORMATION.
[2022-09-15 04:01] LABS: BASOPHILS ABSOLUTE AUTO 0.05 K/mm3 (0.00-0.23); BASOPHILS PERCENT AUTO 1 % (0-2); EOSINOPHILS ABSOLUTE AUTO 0.39 K/mm3 (0.00-0.68); EOSINOPHILS PERCENT AUTO 6 % (0-6); Hematocrit 33.1 % (37.0-53.0); Hemoglobin 11.3 g/dL (13.5-17.5); IMMATURE GRAN ABSOLUTE AUTO 0.11 K/mm3 (0.00-0.10); IMMATURE GRAN PERCENT AUTO 2 % (0-1); LYMPHOCYTES ABSOLUTE AUTO 1.79 K/mm3 (0.84-5.20); LYMPHOCYTES PERCENT AUTO 26 % (21-46); MONOCYTES ABSOLUTE AUTO 0.73 K/mm3 (0.16-1.47); MONOCYTES PERCENT AUTO 11 % (4-13); Mean Corpuscular HGB 30.2 pg (26.0-34.0); Mean Corpuscular HGB Conc 34.1 g/dL (31.5-36.5); Mean Corpuscular Volume 89 fL (80-100); Mean Platelet Volume 8.7 fL (9.1-12.4); NEUTROPHILS ABSOLUTE AUTO 3.86 K/mm3 (1.96-9.15); NEUTROPHILS PERCENT AUTO 56 % (41-73); Platelet Count 380 K/mm3 (150-400); RDW Coefficient Variation 11.7 % (11.7-14.2); RDW Standard Deviation 38.2 fL (35.1-46.3); Red Blood Cell Count 3.74 M/mm3 (4.30-5.90); White Blood Cell Count 6.93 K/mm3 (4.00-11.30)
[2022-09-15 04:23] LABS: Albumin, Blood 2.4 g/dL (3.4-5.0); Albumin/Globulin Ratio 0.5 (0.8-1.8); Bilirubin, Total 0.2 mg/dL (0.1-1.0); Bun/Creatinine Ratio 32.8 (12.0-20.0); Calcium, Blood 8.8 mg/dL (8.5-10.1); Creatinine, Blood 0.73 mg/dL (0.60-1.20); Globulin, Blood 4.6 g/dL (2.2-4.0); Magnesium, Blood 2.5 mg/dL (1.6-2.4); Potassium, Blood 3.9 mmol/L (3.5-5.5)
--- NOTE | 2022-09-15 04:25 | NUR ---
SVT FOR LESS THAN A MINUTE WITH HR UP TO 179. PLEASE SEE ATTACHED SAVED MONITOR STRIP.
--- NOTE | 2022-09-15 06:18 | NUR ---
END OF SHIFT SUMMARY PT INTUBATED AND SEDATED. IS VERY AGITATED AND RESTLESS THROUGHOUT SHIFT. DILAUDID AND VALIUM GIVEN PER EMAR WITH LESS AGITATION NOTED. PROP AT 50 MCG WITH RESPONSE TO PAINFUL STIMULI. DOES NOT FOLLOW COMMANDS AT THIS TIME. RESP- >92% ON VENT. AC/VC+ 15/500/10/35% CARDIAC- IRREGULAR RHYTHM THROUGHOUT SHIFT WITH PAC'S NOTED CONTINUOUSLY. HR 50'S-60'S WITH ONE EPISODE OF TACHY 179 HR. THIS TACHY EPISODE LASTED LESS THAN A MINUTE. GI,- SIGNIFICANT URINE OUTPUT THIS SHIFT WITH >2400 OUT. URINE IS LIGHT GREEN IN COLOR. TF AT GOAL RATE 35 MLS/HR WITH 100 MLS Q2 H20 FLUSH. INTEG- NOTHING NEW TO REPORT. TKO AT 10 MLS/HR WILL CONTINUE TO MONITOR PT UNTIL DAY SHIFT RN REPORT GIVEN.
--- NOTE | 2022-09-15 07:00 | NUR ---
ASSUMPTION OF CARE PT REMAINS INTUBATED WITH VENT SETTINGS AC/VC+ 15/500/10/35%. PT RECEIVING PROPOFOL INFUSING AT 50MCG/KG/MIN, TITRATED TO 40MCG/KG/MIN. RT AT BEDSIDE AND CHANGED PEEP TO 8. PT GRIMACES WITH NOXIOUS STIMULI, MOVES HEAD SIDE TO SIDE AND MOVES EXTREMITIES. COUGH/GAG INTACT. LUNGS ARE CLEAR, DIMINISHED IN THE R BASE. SINUS RHYTHM ON MONITOR WITH RATE 50S-60S. SBP 90S-120S. TUBE FEEDING INFUSING AT GOAL RATE. BOWEL TONES HYPERACTIVE, ABDOMEN SOFT. TEMP MAKI PATENT AND DRAINING GREEN/YELLOW URINE TO GRAVITY.
--- NOTE | 2022-09-15 12:33 | NUR ---
EXTUBATION PROPOFOL ON STANDBY, PT BEGAN WAKING UP AND ABLE TO FOLLOW SOME SIMPLE COMMANDS. PT EXTUBATED AT 0855. PT HAS STRONG COUGH. HE IS ON 3L NC WITH SPO2 >93%. RR 14-26. PT DENIES SOB. PT ABLE TO NOD/SHAKE HEAD AND ANSWER QUESTIONS WITH SHORT ANSWERS. SPEECH IS SOMEWHAT MUMBLED. PT DENIES PAIN/DISCOMFORT DESPITE RESTLESS BEHAVIOR. PT CONTINUOUSLY MOVING AROUND BED, MOVING ALL EXTREMITIES AND ATTEMPTING TO GET OUT OF BED. PT PLACED ON 2MD HOLD AND READ CIVIL RIGHTS. PT NOT VERY REDIRECTABLE. PRECEDEX GTT INITIATED AT 0.3MCG/KG/HR AND TITRATED TO 0.7MCG/KG/HR. PT PLACED IN HATTIE VEST DUE TO ATTEMPTING TO GET OUT OF BED. PT BEGINS PULLING AT CORDS/WIRES, ATTEMPTED TO PULL OUT L POWERGLIDE. PT PLACED IN BUE TAT CUFFS DUE TO STRENGTH. PT HAD 2 LARGE INCONTINENT VOIDS. CODOM CATH IN PLACE. SPOUSE AT BEDSIDE. PT HAS 1:1 SITTER AND IS ON CENTRAL MONITOR.
--- NOTE | 2022-09-15 14:11 | NUR ---
UPDATE PT REMAINS ON PRECEDEX. HE TRANSITIONS BETWEEN SLEEPING AND CALM BEHAVIOR TO RESTLESS AND ATTEMPTING TO GET OUT BED. PT REDIRECTABLE BUT NEEDS CONTINUOUS REDIRECTING AT BEDSIDE. ATTEMPTED TO LOOSEN BILAT TAT CUFFS, PT ATTEMPTS TO CLIMB OVER BEDRAILS. RESTRAINTS TIGHTENED. 1:1 SITTER AND CENTRAL MONITORING REMAINS IN PLACE.
--- NOTE | 2022-09-15 16:00 | NUR ---
UPDATE PT RESTING COMFORTABLY, CHEST RISE AND FALL REGULAR WITH RATE 15-20. PT IS RECEIVING PRECEDEX 1MCG/KG/HR. SINUS LEONARD WITH HR 50-60, BP STABLE. SPOUSE ROE REQUESTED TO SPEAK WITH PSYCHOLOGIST WHO EVALUATES PT TOMORROW TO PROVIDE MORE IN DEPTH INFORMATION. SPOUSE AT BEDSIDE FOR MOST OF THE DAY AND ASSISTING WITH REORIENTATION. 1:1 SITTER AND CENTRAL MONITOR REMAIN IN PLACE.
--- NOTE | 2022-09-15 17:20 | NUR ---
SHIFT SUMMARY PT EXTUBATED THIS AM AT 0855. SEE PREVIOUS NOTES REGARDING BEHAVIOR AND INTERVENTIONS. PT CURRENTLY RECEIVING PRECEDEX 0.7MCG/KG/HR. PT RESTING AT THIS TIME WITH VISIBLE CHEST RISE AND FALL. PT CONTINUES TO BE CONFUSED, DIFFICULT TO REDIRECT, AND ATTEMPTS TO GET OUT OF BED. HE REMAINS ON 3L NC WITH SPO2 >93% WITH RR 14-19. SINUS LEONARD WITH RATE 50-60. BP STABLE. PT REMAINS NPO. CONDOM CATH IN PLACE DRAINING LIGHT GREEN/YELLOW URINE. 1:1 SITTER AND CENTRAL MONITOR IN PLACE.
--- NOTE | 2022-09-15 20:31 | NUR ---
ASSUMED CARE ASSUMED CARE AT 1900. PT A/O TO SELF ONLY. STATES HE IS IN "[facility]" AND THE YEAR IN 1931. DIFFICULT TO REORIENT. FOLLOWS SIMPLE COMMANDS AT TIMES. IMPULSIVE, TRIES TO PULL AT LINES AND TUBES. PT RESTLESS IN BED, TURNING SIDE TO SIDE, AND LEANING FORWARD WITH HEAD TOUCHING KNEES. TEARFUL AT TIMES. PT STATES "KNOCK ME OUT SO I CAN SLEEP", AND "CAN I HAVE HEROIN?". PT EDUCATED ON POC AND MEDICATIONS. SB RATE 50-60'S. VSS. ON 3L NC. PRECEDEX GTT INFUSING. SEE FLOWSHEET FOR TITRATIONS. CONDOM CATH IN PLACE. PT IN BILATERAL TAT RESTRAINTS. 1:[address] FOR HIGH SUICIDE RISK.
--- NOTE | 2022-09-15 23:34 | NUR ---
AGITATION PT YELLING, KICKING LEGS, PULLING AGAINST RESTRAINTS, AND TWISTING SELF IN BED. PT STATING " I WANT TO GET UP", "LET ME OUT", AND "I DON'T BELIEVE YOU". PT ALSO STATING "YOU ARE EXPERIMENTING ON ME", AND SEEING PEOPLE IN ROOM. ATTEMPTED TO REORIENT PT W/O SUCCESS. MEDICATED PT PER EMAR. BILATERAL WRIST RESTRAINTS, AND 1:[address]
--- NOTE | 2022-09-16 01:54 | NUR ---
POWERGLIDE MEDICATIONS GIVEN PER EMAR NOT EFFECTIVE. PT CONTINUED TO BE AGITATED, THREATENING STAFF, TRYING TO GET OOB, AND YELLING. PT STATED "YOU ARE KILLING ME. YOU ARE TRYING TO KILL ME". YELLING OUT FOR "[facility]" AND "[facility]". HOSP CALLED AND ORDER RECEIVED FOR 5MG ZYPREXA IM Q6. SUSPECTED POWERGLIDES NOT INFUSING PROPERLY D/T PT NOT RESPONDING TO MEDICATIONS. FINISHER BRUSH IN ROOM. SAMUEL PG FOUND TO BE KINKED TWICE AND CLOTTED OFF. SAMUEL REMOVED. MARCELINO PG DIFFICULT TO FLUSH W/ NO BLOOD RETURN. DRSG CHANGED AND PG REPOSITIONED BY FINISHER BRUSH. ABLE TO BE FLUSHED EASIER BUT NO BLOOD RETURN. NEW PG PLACED IN SAMUEL WITH BLOOD RETURN. PRECEDEX GTT SWITCHED TO SAMUEL PG.
[2022-09-16 03:30] LABS: BASOPHILS ABSOLUTE AUTO 0.05 K/mm3 (0.00-0.23); BASOPHILS PERCENT AUTO 1 % (0-2); EOSINOPHILS ABSOLUTE AUTO 0.21 K/mm3 (0.00-0.68); EOSINOPHILS PERCENT AUTO 3 % (0-6); Hematocrit 35.5 % (37.0-53.0); Hemoglobin 12.6 g/dL (13.5-17.5); IMMATURE GRAN PERCENT AUTO 1 % (0-1); LYMPHOCYTES ABSOLUTE AUTO 1.99 K/mm3 (0.84-5.20); LYMPHOCYTES PERCENT AUTO 24 % (21-46); MONOCYTES ABSOLUTE AUTO 0.87 K/mm3 (0.16-1.47); MONOCYTES PERCENT AUTO 11 % (4-13); Mean Corpuscular HGB 30.1 pg (26.0-34.0); Mean Corpuscular HGB Conc 35.5 g/dL (31.5-36.5); Mean Corpuscular Volume 85 fL (80-100); Mean Platelet Volume 8.6 fL (9.1-12.4); NEUTROPHILS ABSOLUTE AUTO 4.93 K/mm3 (1.96-9.15); NEUTROPHILS PERCENT AUTO 61 % (41-73); Platelet Count 439 K/mm3 (150-400); RDW Coefficient Variation 11.5 % (11.7-14.2); RDW Standard Deviation 35.6 fL (35.1-46.3); Red Blood Cell Count 4.18 M/mm3 (4.30-5.90); White Blood Cell Count 8.15 K/mm3 (4.00-11.30)
[2022-09-16 03:50] LABS: Bun/Creatinine Ratio 39.8 (12.0-20.0); Calcium, Blood 9.4 mg/dL (8.5-10.1); Creatinine, Blood 0.73 mg/dL (0.60-1.20); Magnesium, Blood 2.5 mg/dL (1.6-2.4); Potassium, Blood 3.9 mmol/L (3.5-5.5)
--- NOTE | 2022-09-16 05:18 | NUR ---
SHIFT SUMMARY SEE PREVIOUS NOTES. AFTER ZYPREXA AND WITH THE PRECEDEX GTT, PT HR IN 40'S. PRECEDEX TITRATED DOWN TO STANDBY. HR INCREASED TO 60'S AND PT RESTLESS IN BED. PRECEDEX RESTARTED. SEE FLOWSHEET. VSS. SB/SINUS ARRHYTHMIA 40-60'S. ONE 12 BEAT RUN OF SVT THIS AM. ON 3L NC. CALLED AND GIVEN UPDATE ON PT CONDITION. PT INCONT OF URINE AND PULLED CONDOM CATH OFF X3. BRIEF IN PLACE. WILL REPORT TO ONCOMING NURSE.
--- NOTE | 2022-09-16 06:36 | NUR ---
MORNING CBG MORNING CBG OF 67. PT DIAPHORETIC. HOSP CALLED AND AMP OF D50 ORDERED AND ADMINISTERED. WILL RECHECK CBG 30 MINS AFTER ADMINISTRATION.
--- NOTE | 2022-09-16 08:30 | NUR ---
ASSUMED CARE: REPORT RECEIVED FROM LUZ MARIA HAYES. ASSUMED CARE OF THIS PT AT APPROX 0700. ON ASSESSMENT, THE PT IS RESTING QUIETLY. PRECEDEX INFUSING AT 0.4 MCG/KG/HR. THE PT GRIMACES & GROANS TO TACTILE STIMULUS, OPENING EYES BRIEFLY. PRECEDEX TITRATED DOWN TO 0.3 MCG/KG/HR. LS DIM IN BASES, PT ON 4L NC W/ O2 SATS > 92%. MONITOR SHOWS SB W/ HR 40-50s, BP STABLE. NPO R/T AMS. INCONTINENT OF URINE, ATTENDS IN PLACE ARE CDI. SKIN OVERALL DRY, FRAGILE, FLAKING. Q2H REPOSITIONING TO MAINTAIN SKIN INTEGRITY. 1:1 SITTER REMAINS AT BEDSIDE FOR HIGH SI RISK S/P OVERDOSE. WILL CONTINUE TO MONITOR & UPDATE NEEDED.
--- NOTE | 2022-09-16 11:00 | NUR ---
UPDATE / DR TAM: THE PT's MENTATION HAS IMPROVED SIGNIFICANTLY THIS AM. HIS , ROE, IS AT BEDSIDE & HE HAS OVERALL BEEN CALM & COOPERATIVE. HE IS ABLE TO RECALL THIS RN & DOES TELL ME THAT HE TOOK THE PILLS IN AN ATTEMPT TO COMMIT SUICIDE, ALTHOUGH HE DOES NOT REMEMBER WHY HE FELT THE NEED TO COMMIT SUICIDE AT THAT TIME. RESTRAINTS REMOVED AT 1015 & THE PT HAS REMAINED COOPERATIVE, NO LONGER PULLING AT LINES OR ATTEMPTING TO GET OOB. HE IS WORKING W/ PHYSICAL THERAPY & ABLE TO AMBULATE W/ FWW & MOD STAFF ASSIST. BEDSIDE SWALLOW EVAL PASSED. PROVIDER HAS SEEN THE PT THIS AM. VERIFIED THAT PSYCHIATRY HAS BEEN CONSULTED. HE WOULD LIKE PRECEDEX TO BE TITRATED DOWN TOLERATED. DIET ORDERED. OXYGEN TITRATED DOWN TO 2L NC. NO OTHER CHANGES AT THIS TIME.
--- NOTE | 2022-09-16 16:58 | NUR ---
SHIFT SUMMARY: NO ACUTE CHANGES SINCE PRIOR UPDATES. PT REMAINS A&O TO SELF, PLACE, PERSON & FOLLOWING DIRECTIONS. HE REMAINS IMPULSIVE AT TIMES & REQUIRES REDIRECTION WHEN ATTEMPTING TO CLIMB OOB, RESPONDS WELL OVERALL & IS COOPERATIVE. PRECEDEX INFUSING AT 0.2 MCG/KG/HR, TITRATING DOWN ABLE. LS DIM IN BASES, PT ON RA W/ O2 SATS > 92%. MONITOR SHOWS SB-SR W/ HR 50-70s. HTN THIS EVENING W/ SCHEDULED MEDS PER EMAR. PT TOLERATING PO INTAKE WELL, NO GI COMPLAINTS. VOIDS URINE W/O DIFFICULTY, HE HAS BEEN CONTINENT THIS AFTERNOON WHILE MORE AWAKE. SKIN OVERALL UNCHANGED, DRY & FLAKING. PT REPOSITIONS SELF FOR COMFORT. WILL CONTINUE TO MONITOR & REPORT OFF TO ONCOMING RN.
--- NOTE | 2022-09-16 17:10 | NUR ---
DR BARRERA: PROVIDER AT BEDSIDE TO CLIVE PT THIS EVENING. HE HAS SPOKEN W/ THE PT & HIS , ROE, AT LENGTH. 1:1 SITTER FOR HIGH RISK SI HAS BEEN DISCONTINUED. HE WILL CONTINUE THE INVOLUNTARY HOLD FOR NOW HE DOES NOT FEEL THE PT IS FIT TO LEAVE BEFORE BEING MEDICALLY STABLE. ORDERS PLACED. REMOTE CAMERA MONITORING REMAINS ON FOR HIGH FALL RISK.
[2022-09-17 04:44] LABS: Bun/Creatinine Ratio 38.5 (12.0-20.0); Calcium, Blood 9.4 mg/dL (8.5-10.1); Creatinine, Blood 0.96 mg/dL (0.60-1.20); Magnesium, Blood 2.4 mg/dL (1.6-2.4); Phosphorus, Blood 4.4 mg/dL (2.5-4.9); Potassium, Blood 3.6 mmol/L (3.5-5.5)
--- NOTE | 2022-09-17 05:14 | NUR ---
SHIFT SUMMARY: At the beginning of the shift, patient was cooperative and pleasant, oriented to self and place, yet restless and impulsive. Frequently tries to get to edge of bed. I assisted him to stand at edge of bed. He is unsteady on his feet and needs nurse assist and walker/gait belt for ambulation. Around 0000, he became more confused and endorsed hallucinations such as seeing a truck outside the window that was not present. He also expressed some paranoid delusions such as thinking that people were coming to get him. Precedex titrated up due to restlessness and anxiety. About 1hr after midnight scheduled clonidine dose, he finally went to sleep. Precedex weaned off throughout the night. He remains bradycardic with HR in the 50s off precedex this morning. As of 0500, he is awake and following commands. Remains on room air. Had one large incontinent urine episode following lasix dose last night. Ate snacks overnight and talked to on the phone.
--- NOTE | 2022-09-17 07:55 | NUR ---
AM NOTE... ASSUMED CARE OF PT AT 0700. PT IS A&Ox3 WITH SOME FORGETFULLNESS AT TIMES. PT HAS BEEN OFF PRECEDEX SINCE 0400 AND IS CALM/COOPERATIVE WITH CARE. PT'S VS STABLE AT THIS TIME. HE CURRENTLY DENIES ANY THOUGHTS/FEELINGS OF SUICIDE OR SELF HARM. WILL CONTINUE TO MONITOR.
--- NOTE | 2022-09-17 10:46 | NUR ---
"Spritual Care | Pt. and Nurse Request Pt. is sitting up in a chair and welcomes my visit. Pts. spouse is present. Pt. is pleasant and verbalizes that he has made a brian renewal decision. Listen with sincere empathy and support. Facilitate a life review and establish rapport. Pt. displays evidence of wanting support after discharge. [facility] contact information is given to the Pt. Pt. verbalized gratitude for the spiritual care visit and welcomed this medicine assistant to return. Care Management arrived to discuss plans with Pt. and spouse."
--- NOTE | 2022-09-17 12:21 | NUR ---
PT UPDATE.... REPORT WAS GIVEN TO ROBERT DUFFY RN. PT'S VS STABLE. PT WAS GIVEN A SHOWER PRIOR TO TRANSFER. ALL OF PT'S BELONGINGS WERE PACKED AND SENT WITH THE PT.
--- NOTE | 2022-09-17 13:00 | NUR ---
PT ARRIVED TO MED FLOOR FROM ICU A&OX4 AND IN PLEASENT MOOD. PT STATES HE IS AWAITING DR. JIMENES AT THIS TIME. PT STATES, "OUT PT PHYSCH HAS RELEASED ME" WANTS TO DC. AT BEDSIDE.
[2022-09-17] MEDS ORDERED: AMOCLA875 PO (16:47)
[2022-09-17] MEDS ORDERED: TRAZ50 PO (16:48)
[2022-09-17] MEDS ORDERED: VISBIOME 112.51 EACH PO (16:48)
[2022-09-17] MEDS ORDERED: CATAPRES0.2 M1 PO (16:48)
--- NOTE | 2022-09-17 17:02 | NUR ---
DISCHARGE PT A&OX4 AT BEDSIDE. PROVIDED W/ WRITTEN AND VERBAL DIRECTION. MEDS FAXED/CALLED INTO [facility]. TOLERATING PO INTAKE WELL. VSS. PROVIDING TRANSPORT HOME. JEAN MARIE DE LEON
== END 2022-09-17 17:02 | disposition home or self-care (01) | DRG 917 ==
LOC: ER 05:25 → ICUW 08:02 → ICUE 08:02 → MEDS 09-17 12:45
PROVIDERS: Emergency Medicine; Family Medicine; Internal Medicine; Internal Medicine Critical Care Medicine; ADMIT Internal Medicine
PROC: 3E02340 Introduction of Influenza Vaccine into Muscle, Percutaneous Approach (ICD-10-PCS; principal; 2022-09-05)
PROC: 0T9B70Z Drainage of Bladder with Drainage Device, Via Natural or Artificial Opening (ICD-10-PCS; 2022-09-05)
PROC: 5A1955Z Respiratory Ventilation, Greater than 96 Consecutive Hours (ICD-10-PCS; 2022-09-05)
PROC: 0BH17EZ Insertion of Endotracheal Airway into Trachea, Via Natural or Artificial Opening (ICD-10-PCS; 2022-09-05)
PROC: 0D9670Z Drainage of Stomach with Drainage Device, Via Natural or Artificial Opening (ICD-10-PCS; 2022-09-06)
PROC: 3E0G76Z Introduction of Nutritional Substance into Upper GI, Via Natural or Artificial Opening (ICD-10-PCS; 2022-09-08)
DX: T42.4X2A Poisoning by benzodiazepines, intentional self-harm, initial encounter (principal); G92.8 Other toxic encephalopathy; J96.01 Acute respiratory failure with hypoxia; J69.0 Pneumonitis due to inhalation of food and vomit; J14 Pneumonia due to Hemophilus influenzae; K94.23 Gastrostomy malfunction; F11.20 Opioid dependence, uncomplicated; F15.20 Other stimulant dependence, uncomplicated; F13.20 Sedative, hypnotic or anxiolytic dependence, uncomplicated; E16.2 Hypoglycemia, unspecified; B19.20 Unspecified viral hepatitis C without hepatic coma; F17.210 Nicotine dependence, cigarettes, uncomplicated; F10.229 Alcohol dependence with intoxication, unspecified; F12.20 Cannabis dependence, uncomplicated; D64.9 Anemia, unspecified; R00.1 Bradycardia, unspecified; E87.6 Hypokalemia; E88.09 Other disorders of plasma-protein metabolism, not elsewhere classified; T51.92XA Toxic effect of unspecified alcohol, intentional self-harm, initial encounter; Z23 Encounter for immunization; Z87.19 Personal history of other diseases of the digestive system; Z98.890 Other specified postprocedural states; Z79.899 Other long term (current) drug therapy; Z78.1 Physical restraint status; Y90.8 Blood alcohol level of 240 mg/100 ml or more
CPT/HCPCS: 31500; 36680; 51702; 71045; 80048; 80053; 80069; 82947; 83735; 84100; 84145; 84484; 85025; 85027; 86140; 87070; 87077; 87185; 87205; 90686; 93005; 93010; 94002; 94003; 94762; 96365-59; 96368; 97162; 97530; 99291-25; A9270; C1751; G0480; J0330; J0360; J0696; J1170; J1630; J1650; J1940; J2704; J3010; J3360; J3411; J3475; J3480; J7030; J7050

== ENCOUNTER 2025-02-07 07:27 | Inpatient (IN) | payer OTHER ==
[~2025-02-07] VITALS: Ht 180.3 cm; Wt 83.3 kg
[~2025-02-07 07:27] MED LIST changes: +AMOCLA875 PO; +CATAPRES0.2 M1 PO; +TRAZ50 PO; +VISBIOME 112.51 EACH PO
[2025-02-07] MEDS ORDERED: Magnesium Sulf 2 GM/Water 50ML 50 ML IV ONE (08:00)
[2025-02-07] MEDS ORDERED: NS 500 ML IV SCH (08:00)
[2025-02-07 08:25] LABS: Alanine Aminotransfer (ALT/SGP 19.0 U/L (12-78); Albumin, Blood 3.2 g/dL (3.4-5.0); Albumin/Globulin Ratio 0.7 (0.8-1.8); Anion Gap 9.0 mmol/L (3-11); Aspartate Aminotrans (AST/SGOT 26.0 U/L (12-37); Bilirubin, Total 0.7 mg/dL (0.1-1.0); Blood Urea Nitrogen 18.0 mg/dL (8-24); CO2, Blood 23.0 mmol/L (21-32); Calcium, Blood 8.6 mg/dL (8.5-10.1); Chloride, Blood 109.0 mmol/L (98-108); Creatinine, Blood 1.07 mg/dL (0.60-1.20); Globulin, Blood 4.3 g/dL (2.2-4.0); Glucose, Blood 98.0 mg/dL (70-99); Magnesium, Blood 2.0 mg/dL (1.6-2.4); Potassium, Blood 3.6 mmol/L (3.5-5.5); Sodium, Blood 137.0 mmol/L (136-145); Total Protein, Blood 7.5 g/dL (6.4-8.2)
[2025-02-07 09:23] LABS: BASOPHILS ABSOLUTE AUTO 0.03 K/mm3 (0.00-0.23); BASOPHILS PERCENT AUTO 0 % (0-2); EOSINOPHILS ABSOLUTE AUTO 0.10 K/mm3 (0.00-0.68); EOSINOPHILS PERCENT AUTO 1 % (0-6); Hematocrit 36.8 % (37.0-53.0); Hemoglobin 12.7 g/dL (13.5-17.5); IMMATURE GRAN ABSOLUTE AUTO 0.04 K/mm3 (0.00-0.10); IMMATURE GRAN PERCENT AUTO 1 % (0-1); LYMPHOCYTES ABSOLUTE AUTO 2.26 K/mm3 (0.84-5.20); LYMPHOCYTES PERCENT AUTO 27 % (21-46); MONOCYTES ABSOLUTE AUTO 0.66 K/mm3 (0.16-1.47); MONOCYTES PERCENT AUTO 8 % (4-13); Mean Corpuscular HGB Conc 34.5 g/dL (31.5-36.5); Mean Corpuscular Volume 90 fL (80-100); NEUTROPHILS ABSOLUTE AUTO 5.25 K/mm3 (1.96-9.15); NEUTROPHILS PERCENT AUTO 63 % (41-73); NRBC ABSOLUTE 0.00 K/mm3 (0.00-0.02); NRBC Auto 0.0 /100 WBC (0.0-0.2); Platelet Count 291 K/mm3 (150-400); RDW Coefficient Variation 13.1 % (11.7-14.2); RDW Standard Deviation 42.5 fL (35.1-46.3)
[2025-02-07] MEDS ORDERED: Diltiazem HCl 5 MG / ML 5ML Vial IV ONE (10:20)
[2025-02-07] MEDS ORDERED: Midazolam HCl 1MG / ML 2ML Vial ONE (10:44)
[2025-02-07] MEDS ORDERED: Midazolam HCl 1MG / ML 2ML Vial IV ONE (10:45)
[2025-02-07] MEDS ORDERED: Ipratropium/Albuterol SulF 2.5-0.5MG/3 ML Amp INH PRN (12:55)
[2025-02-07] MEDS ORDERED: Prochlorperazine Edisylate 10 mg Vial IV PRN (12:55)
[2025-02-07 16:00] VITALS: BP 131/89
[2025-02-07 19:37] VITALS: BP 143/103
[2025-02-08] VITALS (10 sets, daily range): BP systolic 104–140; BP diastolic 83–109
[2025-02-08] MEDS ORDERED: LORazepam 2 MG/ML 1ML Injection IV ONE (01:50)
[2025-02-08 05:19] LABS: BASOPHILS ABSOLUTE AUTO 0.03 K/mm3 (0.00-0.23); BASOPHILS PERCENT AUTO 0 % (0-2); EOSINOPHILS ABSOLUTE AUTO 0.15 K/mm3 (0.00-0.68); EOSINOPHILS PERCENT AUTO 2 % (0-6); Hematocrit 38.1 % (37.0-53.0); Hemoglobin 12.8 g/dL (13.5-17.5); IMMATURE GRAN ABSOLUTE AUTO 0.04 K/mm3 (0.00-0.10); IMMATURE GRAN PERCENT AUTO 1 % (0-1); LYMPHOCYTES ABSOLUTE AUTO 2.62 K/mm3 (0.84-5.20); LYMPHOCYTES PERCENT AUTO 31 % (21-46); MONOCYTES ABSOLUTE AUTO 0.71 K/mm3 (0.16-1.47); MONOCYTES PERCENT AUTO 8 % (4-13); Mean Corpuscular HGB Conc 33.6 g/dL (31.5-36.5); Mean Corpuscular Volume 91 fL (80-100); NEUTROPHILS ABSOLUTE AUTO 5.01 K/mm3 (1.96-9.15); NEUTROPHILS PERCENT AUTO 58 % (41-73); NRBC ABSOLUTE 0.00 K/mm3 (0.00-0.02); NRBC Auto 0.0 /100 WBC (0.0-0.2); Platelet Count 282 K/mm3 (150-400); RDW Coefficient Variation 13.2 % (11.7-14.2); RDW Standard Deviation 43.5 fL (35.1-46.3)
[2025-02-08 05:54] LABS: Alanine Aminotransfer (ALT/SGP 18.0 U/L (12-78); Albumin, Blood 3.2 g/dL (3.4-5.0); Albumin/Globulin Ratio 0.7 (0.8-1.8); Anion Gap 8.0 mmol/L (3-11); Aspartate Aminotrans (AST/SGOT 24.0 U/L (12-37); Bilirubin, Total 0.7 mg/dL (0.1-1.0); Blood Urea Nitrogen 21.0 mg/dL (8-24); CO2, Blood 25.0 mmol/L (21-32); Calcium, Blood 8.5 mg/dL (8.5-10.1); Chloride, Blood 106.0 mmol/L (98-108); Creatinine, Blood 1.08 mg/dL (0.60-1.20); Globulin, Blood 4.4 g/dL (2.2-4.0); Glucose, Blood 113.0 mg/dL (70-99); Magnesium, Blood 2.4 mg/dL (1.6-2.4); Potassium, Blood 4.0 mmol/L (3.5-5.5); Sodium, Blood 135.0 mmol/L (136-145); Total Protein, Blood 7.6 g/dL (6.4-8.2)
--- NOTE | 2025-02-08 06:42 | NUR ---
PT'S CARDIZEM WAS ON HOLD D/T PT'S HEART RATE BEING AFIB IN THE 80s. PT WAS VERY ANXIOUS THROUGHOUT THE NIGHT. PT WAS MEDICATED WITH PRN ANXIETY MEDICATION ORDERED. PT STATED IT DIDN'T HELP AND FELT LIKE HE WAS HAVING A PANIC ATTACK. ASKED PT WHAT DID HE TAKE FOR THEM AT HOME. PT SAID "I TAKE WEED" FOR THE PANIC ATTACKS. PROVIDER NOTIFIED. ONE TIME DOSE OF IV ATIVAN AND PO HYDROXYZINE ORDERED AND GIVEN. PT LESS ANXIOUS AND SLEPT AFTERWARDS. PT'S HEART RATE INCREASED THROUGHOUT THE NIGHT. AFIB 110s-140s WITH A PEAK OF 150. CARDIZEM GTT RESTARTED. VSS. BED LOCKED IN LOWEST POSITION. BED ALARM ON D/T MEDS GIVEN. CALL LIGHT WITHIN REACH.
--- NOTE | 2025-02-08 12:36 | NUR ---
PATIENT REMAINS DROWSY BUT AROUSABLE TO VERBAL STIMULI. IV CARDIZEM INFILTRATED AT 0945, PHARMACY NOTIFIED, NO INTERVENTIONS NEEDED. ATTEMPTED POWERGLIDE IN RIGHT BICEP, PATIENT NOT ABLE TO TOLERATE HE BECAME VERY AGITATED AND WAS YELLING AT STAFF. PIV VIA US PLACED IN R AC. SPOKE WITH HALL SUPERVISOR AT [address] CAN BE COMPLETED. NO TRANSPORTER AVAILABLE. MATERIAL MANAGER WILL TAKE PATIENT TO CT ON TELE VIA W/C. PATIENT HAS NO COMPLAINTS. PATIENT REMAINS IN AFIB, HR 90-110'S OCCASIONALLY REACHING 130'S. CALLED DR. LR. ORDER TO GIVE ADDITIONAL LOPRESSOR 25MG PO. ORDER PLACED IN PHARMAJET.
--- NOTE | 2025-02-08 15:30 | NUR ---
SHIFT SUMMARY PATIENT WAS INITIALLY DROWSY BUT AROUSABLE TO VERBAL STIMULI. IV WAS REPLACED. PATIENT HAD CT AND ECHO DONE. CT RESULTS DISCUSSED WITH PROVIDER. PATIENT HAD SHOWER INDEPENDENTLY. RR CONTINUED TO INCREASE TO 25-30'S, BIOX >95% ON ROOM AIR. LS CLEAR AND DIMINISHED IN BASES. CARDIZEM STOPPED THIS MORNING. TOTAL OF 50MG METOPROLOL GIVEN PO. RATE APPROX 90-100 CURRENTLY. PATIENT HAD S/O VISITING MOST OF THE SHIFT. AT 1520 HER AND PATIENT WERE ARGUING, SHE PROCEEDED TO GO TO NURSES STATION TO TELL THIS RN THAT HE WANTED TO LEAVE. S/O LEFT UNIT TO GO ON WALK. THIS RN SPOKE WITH PATIENT IN ROOM. EXPRESSED DESIRE TO LEAVE HOSPITAL AND STATES HE UNDERSTANDS THE RISKS OF LEAVING, INCLUDING AND SEVERE DISABILITY. DR LR NOTIFIED. WENT BACK TO ROOM AND PATIENT WAS RESTING WITH EYES CLOSED. VSS.
--- NOTE | 2025-02-08 15:56 | NUR ---
PATIENT STILL REQUESTING TO LEAVE. RISKS OF LEAVING BEFORE BEING DISCHARGED BY PHYSICIAN DISCUSSED WITH PATIENT INCLUDING: CARDIAC ARREST, RESPIRATORY FAILURE, STROKE, DECOMPENSATION, AND . PATIENT VERBALIZES UNDERSTANDING. OFFERED TO WALK PATIENT AROUND UNIT PRIOR TO LEAVING TO DETERMINE IF HE CAN TOLERATE WALKING. PATIENT DENIES. IV REMOVED. PATIENT DRESSED HIMSELF INDEPENDENTLY AND WALKED OUT OF ROOM WITHOUT ASSISTANCE. PATIENT WILL CALL "SOMEONE" FOR RIDE HOME.
--- NOTE | 2025-02-08 16:36 | NUR ---
METOPROLOL TARTRATE 50MG PO BID #[id number] CALLED INTO [facility]. PATIENT AWARE.
[2025-02-09] MEDS ORDERED: Toprol Xl25 MG PO (18:35)
[2025-02-09] MEDS ORDERED: ELIQUIS5 M2 PO (18:35)
[2025-02-09] MEDS ORDERED: Lasix20 MG PO (18:35)
== END 2025-02-08 16:05 | disposition left against medical advice (07) | DRG 309 ==
LOC: ER 07:27 → ERHOLD 12:51 → PCU 16:28
PROVIDERS: Student in an Organized Health Care Education/Training Program; ADMIT Internal Medicine
DX: I48.0 Paroxysmal atrial fibrillation (principal); F05 Delirium due to known physiological condition; F15.93 Other stimulant use, unspecified with withdrawal; J81.1 Chronic pulmonary edema; Z59.01 Sheltered homelessness; B18.2 Chronic viral hepatitis C; F41.9 Anxiety disorder, unspecified; F17.210 Nicotine dependence, cigarettes, uncomplicated; Z86.19 Personal history of other infectious and parasitic diseases; J44.9 Chronic obstructive pulmonary disease, unspecified; Z87.19 Personal history of other diseases of the digestive system; Z91.51 Personal history of suicidal behavior; Z87.81 Personal history of (healed) traumatic fracture; Z79.899 Other long term (current) drug therapy; Z53.29 Procedure and treatment not carried out because of patient's decision for other reasons
CPT/HCPCS: 36415; 71045; 71260; 80053; 82550; 83735; 83880; 84145; 84484; 85025; 93005; 93010; 93306; 94762; 96365; 96367; 96376; 99285-25; A9270; J2060; J2250; J3475; J7030; Q9967

== ENCOUNTER 2025-02-09 15:18 | Emergency (ER) | payer OTHER ==
[~2025-02-09] VITALS: Ht 180.3 cm; Wt 81.7 kg
[2025-02-09] MEDS ORDERED: Diltiazem HCl 5 MG / ML 5ML Vial IV ONE ×2 (16:00→17:05)
[2025-02-09 16:23] LABS: BASOPHILS ABSOLUTE AUTO 0.04 K/mm3 (0.00-0.23); BASOPHILS PERCENT AUTO 1 % (0-2); EOSINOPHILS ABSOLUTE AUTO 0.07 K/mm3 (0.00-0.68); EOSINOPHILS PERCENT AUTO 1 % (0-6); Hematocrit 41.2 % (37.0-53.0); Hemoglobin 13.7 g/dL (13.5-17.5); IMMATURE GRAN ABSOLUTE AUTO 0.06 K/mm3 (0.00-0.10); IMMATURE GRAN PERCENT AUTO 1 % (0-1); LYMPHOCYTES ABSOLUTE AUTO 2.74 K/mm3 (0.84-5.20); LYMPHOCYTES PERCENT AUTO 31 % (21-46); MONOCYTES ABSOLUTE AUTO 0.76 K/mm3 (0.16-1.47); MONOCYTES PERCENT AUTO 9 % (4-13); Mean Corpuscular HGB Conc 33.3 g/dL (31.5-36.5); Mean Corpuscular Volume 92 fL (80-100); NEUTROPHILS ABSOLUTE AUTO 5.13 K/mm3 (1.96-9.15); NEUTROPHILS PERCENT AUTO 58 % (41-73); NRBC ABSOLUTE 0.00 K/mm3 (0.00-0.02); NRBC Auto 0.0 /100 WBC (0.0-0.2); Platelet Count 276 K/mm3 (150-400); RDW Coefficient Variation 13.3 % (11.7-14.2); RDW Standard Deviation 44.6 fL (35.1-46.3)
[2025-02-09 17:06] LABS: Alanine Aminotransfer (ALT/SGP 21.0 U/L (12-78); Albumin, Blood 3.1 g/dL (3.4-5.0); Albumin/Globulin Ratio 0.8 (0.8-1.8); Anion Gap 11.0 mmol/L (3-11); Aspartate Aminotrans (AST/SGOT 30.0 U/L (12-37); Bilirubin, Total 0.5 mg/dL (0.1-1.0); Blood Urea Nitrogen 21.0 mg/dL (8-24); CO2, Blood 20.0 mmol/L (21-32); Calcium, Blood 8.6 mg/dL (8.5-10.1); Chloride, Blood 109.0 mmol/L (98-108); Creatinine, Blood 0.8 mg/dL (0.60-1.20); Globulin, Blood 4.1 g/dL (2.2-4.0); Glucose, Blood 215.0 mg/dL (70-99); Potassium, Blood 4.2 mmol/L (3.5-5.5); Sodium, Blood 136.0 mmol/L (136-145); Total Protein, Blood 7.2 g/dL (6.4-8.2)
[2025-02-09] MEDS ORDERED: Midazolam HCl 1MG / ML 2ML Vial IV ONE ×2 (17:15→18:10)
[2025-02-09] MEDS ORDERED: Furosemide 10 MG / ML 2ML Vial IV ONE (17:20)
[2025-02-09] MEDS ORDERED: Toprol Xl25 MG PO (18:35)
[2025-02-09] MEDS ORDERED: ELIQUIS5 M2 PO (18:35)
[2025-02-09] MEDS ORDERED: Lasix20 MG PO (18:35)
[2025-02-09 18:53] VITALS: BP 140/111
== END 2025-02-09 18:57 | disposition home or self-care (01) ==
LOC: ER 15:18
PROVIDERS: Student in an Organized Health Care Education/Training Program
DX: I48.91 Unspecified atrial fibrillation (principal); I50.9 Heart failure, unspecified; F17.200 Nicotine dependence, unspecified, uncomplicated
CPT/HCPCS: 71046; 80053; 83690; 83880; 85025; 93005; 93010; 96374; 96375; 96376; 99285-25; A9270; J1938; J2250

== ENCOUNTER 2025-02-14 08:29 | Emergency (ER) | payer OTHER ==
[~2025-02-14] VITALS: Ht 180.3 cm; Wt 81.7 kg
[~2025-02-14 08:29] MED LIST changes: +ELIQUIS5 M2 PO; +Lasix20 MG PO; +Toprol Xl25 MG PO
[2025-02-14 08:32] VITALS: BP 123/91
[2025-02-14] MEDS ORDERED: Metoprolol Tartrate 1 MG/ML 5 ML VIAL IV PRN (09:00)
[2025-02-14 09:20] LABS: BASOPHILS ABSOLUTE AUTO 0.04 K/mm3 (0.00-0.23); BASOPHILS PERCENT AUTO 1 % (0-2); EOSINOPHILS ABSOLUTE AUTO 0.14 K/mm3 (0.00-0.68); EOSINOPHILS PERCENT AUTO 2 % (0-6); Hematocrit 40.8 % (37.0-53.0); Hemoglobin 13.8 g/dL (13.5-17.5); IMMATURE GRAN ABSOLUTE AUTO 0.06 K/mm3 (0.00-0.10); IMMATURE GRAN PERCENT AUTO 1 % (0-1); LYMPHOCYTES ABSOLUTE AUTO 2.61 K/mm3 (0.84-5.20); LYMPHOCYTES PERCENT AUTO 31 % (21-46); MONOCYTES ABSOLUTE AUTO 0.65 K/mm3 (0.16-1.47); MONOCYTES PERCENT AUTO 8 % (4-13); Mean Corpuscular HGB Conc 33.8 g/dL (31.5-36.5); Mean Corpuscular Volume 88 fL (80-100); NEUTROPHILS ABSOLUTE AUTO 4.94 K/mm3 (1.96-9.15); NEUTROPHILS PERCENT AUTO 59 % (41-73); NRBC ABSOLUTE 0.00 K/mm3 (0.00-0.02); NRBC Auto 0.0 /100 WBC (0.0-0.2); RDW Coefficient Variation 13.0 % (11.7-14.2); RDW Standard Deviation 41.9 fL (35.1-46.3)
[2025-02-14 09:24] LABS: Alanine Aminotransfer (ALT/SGP 23.0 U/L (12-78); Albumin, Blood 3.4 g/dL (3.4-5.0); Albumin/Globulin Ratio 0.8 (0.8-1.8); Anion Gap 9.0 mmol/L (3-11); Aspartate Aminotrans (AST/SGOT 19.0 U/L (12-37); Bilirubin, Total 1.0 mg/dL (0.1-1.0); Blood Urea Nitrogen 17.0 mg/dL (8-24); CO2, Blood 27.0 mmol/L (21-32); Calcium, Blood 8.6 mg/dL (8.5-10.1); Chloride, Blood 104.0 mmol/L (98-108); Creatinine, Blood 1.14 mg/dL (0.60-1.20); Globulin, Blood 4.1 g/dL (2.2-4.0); Glucose, Blood 109.0 mg/dL (70-99); Potassium, Blood 4.1 mmol/L (3.5-5.5); Sodium, Blood 136.0 mmol/L (136-145); Total Protein, Blood 7.5 g/dL (6.4-8.2)
== END 2025-02-14 09:03 | disposition home or self-care (01) ==
LOC: ER 08:29
PROVIDERS: Emergency Medicine
DX: I48.91 Unspecified atrial fibrillation (principal); Z79.01 Long term (current) use of anticoagulants; Z79.899 Other long term (current) drug therapy
CPT/HCPCS: 80053; 83880; 84484; 85025; 93005; 93010; 99284